=== PATIENT | female | born 1940 | race African-American/Black ===

== ENCOUNTER 2016-07-27 13:42 | Inpatient (IN) | payer MEDICARE, BC ==
[~2016-07-27] VITALS: Ht 165.1 cm; Wt 66.2 kg
[2016-07-27] MEDS ORDERED: IPRATROPIUM/ALBUTEROL 0.5-3(2.5)MG/3ML NEB HHN PRN (15:00)
[2016-07-27 16:00] VITALS: BP 149/88
[2016-07-27 16:29] VITALS: BP 144/83
[2016-07-27] MEDS ORDERED: ZOLP5TAB8 PO (16:40)
[2016-07-27] MEDS ORDERED: LOTE5DRO5 EACHEYE (16:41)
[2016-07-27] MEDS ORDERED: LOSA25TA12 PO (16:41)
[2016-07-27] MEDS ORDERED: SYSOS EACHEYE (16:44)
[2016-07-27] MEDS ORDERED: MECL-109 PO (16:45)
[2016-07-27] MEDS ORDERED: FLUT16SP15 BOTHNSTRLS (16:45)
[2016-07-27] MEDS ORDERED: FLUT1DIS INH (16:49)
[2016-07-27] MEDS ORDERED: POTA10TA69 PO (16:49)
[2016-07-27] MEDS ORDERED: ALBU2SYR PO (16:49)
[2016-07-27] MEDS ORDERED: ESTR1PAT TD (16:49)
[2016-07-27] MEDS ORDERED: PLAVIX PO (16:49)
[2016-07-27] MEDS ORDERED: AMLO2.5T45 PO (16:49)
[2016-07-27] MEDS ORDERED: OXYB5TAB11 PO (16:49)
[2016-07-27] MEDS ORDERED: PRAV40TA58 PO (16:49)
[2016-07-27] MEDS ORDERED: FAMO40TA35 PO (16:49)
[2016-07-27] MEDS ORDERED: MEDICATION NOT ON FORMULARY EA (Fluticasone/Salmeterol (Advair Diskus) 1 PUFF) INH SCH (17:00)
[2016-07-27] MEDS ORDERED: ALBUTEROL 2MG/5ML ORAL SYR PO SCH (17:00)
[2016-07-27] MEDS ORDERED: MECLIZINE 25MG TABLET PO PRN (17:07)
[2016-07-27] MEDS: METHYLPREDNISOLONE SOD SUCC 40 MG/ML VIAL IV SCH (18:13)
[2016-07-27 20:00] VITALS: BP 166/95
[2016-07-27] MEDS ORDERED: ZOLPIDEM TARTRATE 5MG TABLET PO PRN (20:00)
[2016-07-27 20:27] LABS: BASOPHILS % 0.3 % (0.0-2.0); EOSINOPHILS % 4.9 % (0.0-5.0); HEMATOCRIT. 45.8 % (36.0-48.0); HEMOGLOBIN. 15.5 g/dL (12.0-16.0); LYMPHOCYTES % 19.3 % (20.0-50.0); MEAN CORPUSCULAR HEMOGLOBIN 32.9 pg (28.0-32.0); MEAN PLATELET VOLUME 9.7 fl (7.4-10.4); NEUTROPHILS % 72.5 % (40.0-76.0); PLATELET 180 x1000/uL (130-400); RED BLOOD CELL COUNT 4.72 mill/uL (4.2-5.4); RED CELL DISTRIBUTION WIDTH 13.9 % (11.6-14.6)
[2016-07-27] MEDS: ATORVASTATIN CALCIUM 10MG TABLET PO SCH (20:31)
[2016-07-27] MEDS: AMLODIPINE 2.5MG TABLET PO SCH (20:32)
[2016-07-27] MEDS: IPRATROPIUM/ALBUTEROL 0.5-3(2.5)MG/3ML NEB HHN SCH (20:57)
[2016-07-27] MEDS: BUDESONIDE 0.5MG/2ML NEB HHN SCH (20:57)
[2016-07-27 21:01] LABS: CARBON DIOXIDE 32 mEq/L (21-32); CHLORIDE 103 mEq/L (98-107)
[2016-07-28] VITALS: BP 135/78
[2016-07-28] MEDS: ENOXAPARIN 40MG/0.4ML SYR SUBCUT SCH ×2 (00:04→20:25)
[2016-07-28] MEDS: METHYLPREDNISOLONE SOD SUCC 40 MG/ML VIAL IV SCH ×2 (00:04→09:23)
[2016-07-28] MEDS: FAMOTIDINE 20MG TABLET PO SCH ×2 (00:44→09:25)
[2016-07-28] MEDS: IPRATROPIUM/ALBUTEROL 0.5-3(2.5)MG/3ML NEB HHN SCH ×4 (01:14→21:08)
[2016-07-28 04:00] VITALS: BP 144/83
[2016-07-28] MEDS: BUDESONIDE 0.5MG/2ML NEB HHN SCH ×2 (07:20→21:08)
[2016-07-28 08:00] VITALS: BP 126/72
[2016-07-28] MEDS ORDERED: MEDICATION NOT ON FORMULARY EA (Pravastatin Sodium 1 TAB) PO SCH (09:00)
[2016-07-28] MEDS ORDERED: MEDICATION NOT ON FORMULARY EA ([Plavix] 75 MG) PO SCH (09:00)
[2016-07-28] MEDS ORDERED: MEDICATION NOT ON FORMULARY EA (Potassium Chloride (Klor-Con 10) 10 MEQ) PO SCH (09:00)
[2016-07-28] MEDS ORDERED: FLUTICASONE PROPIONATE 50MCG/SPRAY BOTTLE BOTHNSTRLS SCH (09:00)
[2016-07-28] MEDS ORDERED: FAMOTIDINE 20MG TABLET PO SCH (09:00)
[2016-07-28] MEDS ORDERED: MEDICATION NOT ON FORMULARY EA (Famotidine (Pepcid) 40 MG) PO SCH (09:00)
[2016-07-28] MEDS: CLOPIDOGREL 75MG TABLET PO SCH (09:23)
[2016-07-28] MEDS: POTASSIUM CHLORIDE 10MEQ TABLET SR PO SCH (09:23)
[2016-07-28] MEDS: OXYBUTYNIN CHLORIDE 5MG TABLET PO SCH (09:23)
[2016-07-28] MEDS: POLYVINYL ALCOHOL OPHTH DROPS 15ML OP SCH (09:23)
[2016-07-28] MEDS: AMLODIPINE 2.5MG TABLET PO SCH ×2 (09:24→20:25)
[2016-07-28] MEDS: LOSARTAN POTASSIUM 25 MG TABLET PO SCH (09:24)
[2016-07-28 12:00] VITALS: BP 120/63
[2016-07-28 12:25] LABS: HEMATOCRIT 42.2 % (36.0-48.0); HEMOGLOBIN 14.2 g/dL (12.0-16.0); MEAN CORPUSCULAR HEMOGLOBIN 32.4 pg (28.0-32.0); MEAN CORPUSCULAR VOLUME 96.4 fL (81.0-99.0); PLATELET 191 x1000/uL (130-400); RED BLOOD CELL COUNT 4.38 mill/uL (4.2-5.4)
[2016-07-28] MEDS ORDERED: METHYLPREDNISOLONE SOD SUCC 40 MG/ML VIAL IV ONE (12:30)
[2016-07-28 12:42] LABS: CARBON DIOXIDE 28 mEq/L (21-32); CHLORIDE 104 mEq/L (98-107)
[2016-07-28] MEDS: GUAIFENESIN-DM 200MG-20MG/10ML UDC PO PRN ×2 (13:20→20:25)
[2016-07-28 16:00] VITALS: BP 126/72
[2016-07-28] MEDS ORDERED: PREDNISONE 20MG TABLET PO SCH (17:00)
[2016-07-28 20:00] VITALS: BP 137/70
[2016-07-28] MEDS: LORATADINE 10MG TABLET PO SCH (20:25)
[2016-07-28] MEDS: ATORVASTATIN CALCIUM 10MG TABLET PO SCH (20:25)
[2016-07-28] MEDS: FLUTICASONE PROPIONATE 50MCG/SPRAY BOTTLE BOTHNSTRLS SCH (20:25)
[2016-07-29] VITALS: BP 119/63
[2016-07-29] MEDS: IPRATROPIUM/ALBUTEROL 0.5-3(2.5)MG/3ML NEB HHN SCH ×4 (01:07→20:47)
[2016-07-29 04:00] VITALS: BP 124/73
[2016-07-29 06:20] LABS: BASOPHILS % 0.1 % (0.0-2.0); HEMATOCRIT. 40.7 % (36.0-48.0); HEMOGLOBIN. 13.6 g/dL (12.0-16.0); LYMPHOCYTES % 11.7 % (20.0-50.0); MEAN CORPUSCULAR HEMOGLOBIN 32.3 pg (28.0-32.0); MEAN CORPUSCULAR VOLUME 96.3 fL (81.0-99.0); MEAN PLATELET VOLUME 9.6 fl (7.4-10.4); MONOCYTES % 6.1 % (2.0-8.0); NEUTROPHILS % 82.1 % (40.0-76.0); PLATELET 185 x1000/uL (130-400); RED BLOOD CELL COUNT 4.22 mill/uL (4.2-5.4); RED CELL DISTRIBUTION WIDTH 14.2 % (11.6-14.6)
[2016-07-29] MEDS: FAMOTIDINE 20MG TABLET PO SCH (06:33)
[2016-07-29] MEDS: GUAIFENESIN-DM 200MG-20MG/10ML UDC PO PRN (06:35)
[2016-07-29 07:17] LABS: CARBON DIOXIDE 29 mEq/L (21-32); CHLORIDE 105 mEq/L (98-107)
[2016-07-29] MEDS: BUDESONIDE 0.5MG/2ML NEB HHN SCH ×2 (07:42→20:47)
[2016-07-29] MEDS: CLOPIDOGREL 75MG TABLET PO SCH (08:22)
[2016-07-29] MEDS: DOCUSATE SODIUM 100MG CAPSULE PO SCH (08:22)
[2016-07-29] MEDS: AMLODIPINE 2.5MG TABLET PO SCH ×2 (08:22→20:21)
[2016-07-29] MEDS: OXYBUTYNIN CHLORIDE 5MG TABLET PO SCH (08:22)
[2016-07-29] MEDS: POTASSIUM CHLORIDE 10MEQ TABLET SR PO SCH (08:22)
[2016-07-29] MEDS: LOSARTAN POTASSIUM 25 MG TABLET PO SCH (08:22)
[2016-07-29] MEDS: POLYVINYL ALCOHOL OPHTH DROPS 15ML OP SCH (08:23)
[2016-07-29] MEDS: FLUTICASONE PROPIONATE 50MCG/SPRAY BOTTLE BOTHNSTRLS SCH ×2 (08:23→20:05)
[2016-07-29 08:43] VITALS: BP 143/78
[2016-07-29 12:14] VITALS: BP 115/67
[2016-07-29 16:14] VITALS: BP 106/59
[2016-07-29 20:00] VITALS: BP 117/67
[2016-07-29] MEDS: PREDNISOLONE ACETATE 1% OPHTH DROPS 1ML EACHEYE SCH (20:04)
[2016-07-29] MEDS: ATORVASTATIN CALCIUM 10MG TABLET PO SCH (20:05)
[2016-07-29] MEDS: LORATADINE 10MG TABLET PO SCH (20:05)
[2016-07-29] MEDS: ENOXAPARIN 40MG/0.4ML SYR SUBCUT SCH (20:22)
[2016-07-30] VITALS: BP 125/84
[2016-07-30] MEDS: IPRATROPIUM/ALBUTEROL 0.5-3(2.5)MG/3ML NEB HHN SCH ×3 (02:00→15:32)
[2016-07-30 04:03] VITALS: BP 128/89
[2016-07-30] MEDS: BUDESONIDE 0.5MG/2ML NEB HHN SCH (07:40)
[2016-07-30] MEDS: PREDNISOLONE ACETATE 1% OPHTH DROPS 1ML EACHEYE SCH (08:31)
[2016-07-30] MEDS: FLUTICASONE PROPIONATE 50MCG/SPRAY BOTTLE BOTHNSTRLS SCH (08:31)
[2016-07-30] MEDS: POLYVINYL ALCOHOL OPHTH DROPS 15ML OP SCH ×2 (08:31→08:37)
[2016-07-30] MEDS: GUAIFENESIN-DM 200MG-20MG/10ML UDC PO PRN (08:32)
[2016-07-30] MEDS: CLOPIDOGREL 75MG TABLET PO SCH (08:33)
[2016-07-30] MEDS: LOSARTAN POTASSIUM 25 MG TABLET PO SCH (08:33)
[2016-07-30] MEDS: DOCUSATE SODIUM 100MG CAPSULE PO SCH ×2 (08:33→08:38)
[2016-07-30] MEDS: AMLODIPINE 2.5MG TABLET PO SCH (08:34)
[2016-07-30] MEDS: POTASSIUM CHLORIDE 10MEQ TABLET SR PO SCH (08:34)
[2016-07-30] MEDS: FAMOTIDINE 20MG TABLET PO SCH (08:34)
[2016-07-30] MEDS: OXYBUTYNIN CHLORIDE 5MG TABLET PO SCH (08:34)
[2016-07-30 12:00] VITALS: BP 123/72
[2016-07-30 16:00] VITALS: BP 99/65
[2016-07-30 16:11] LABS: T4 FREE 1.07 ng/dL (0.76-1.46)
[2016-07-30 16:24] VITALS: BP 126/68
[2016-07-30 16:28] LABS: VITAMIN B12 SERUM 1213 pg/mL (211-911)
[2016-07-30 16:31] LABS: FOLIC ACID (FOLATE) SERUM > 20.00 ng/mL (>5.38)
[2016-08-04] MEDS ORDERED: ATOR10TA69 PO (23:49)
[2016-08-04] MEDS ORDERED: DOCU-138 PO (23:49)
[2016-08-04] MEDS ORDERED: IPRA3AMP9 INH (23:49)
[2016-08-04] MEDS ORDERED: LOV40 SQ (23:49)
[2016-08-04] MEDS ORDERED: CLOP75TA2 PO (23:49)
[2016-08-04] MEDS ORDERED: DEXT15DR5 EACHEYE (23:49)
[2016-08-04] MEDS ORDERED: BUDE0.5A3 IH (23:49)
[2016-08-05] MEDS ORDERED: PREDNISOLONE (00:15)
== END 2016-07-30 17:30 | DRG 189 ==
LOC: 5WST 13:42
PROVIDERS: ADMIT Specialist; ATTEND Specialist
DX: J96.00 Acute respiratory failure, unspecified whether with hypoxia or hypercapnia (principal); J44.1 Chronic obstructive pulmonary disease with (acute) exacerbation; E11.9 Type 2 diabetes mellitus without complications; E78.5 Hyperlipidemia, unspecified; K21.9 Gastro-esophageal reflux disease without esophagitis; I10 Essential (primary) hypertension; D72.829 Elevated white blood cell count, unspecified; E78.00 Pure hypercholesterolemia, unspecified; F17.210 Nicotine dependence, cigarettes, uncomplicated; H54.7 Unspecified visual loss; H40.10X0 Unspecified open-angle glaucoma, stage unspecified; R20.0 Anesthesia of skin; R21 Rash and other nonspecific skin eruption; R26.9 Unspecified abnormalities of gait and mobility; K90.0 Celiac disease; M47.9 Spondylosis, unspecified; M48.02 Spinal stenosis, cervical region; T78.3XXA Angioneurotic edema, initial encounter; Z83.3 Family history of diabetes mellitus; Z80.9 Family history of malignant neoplasm, unspecified; Z98.49 Cataract extraction status, unspecified eye; Z86.73 Personal history of transient ischemic attack (TIA), and cerebral infarction without residual deficits; Z88.8 Allergy status to other drugs, medicaments and biological substances; Z79.899 Other long term (current) drug therapy
CPT/HCPCS: 36415; 70551; 71010; 72141; 80048; 80053; 80061; 82607; 82746; 82962; 83036; 83605; 83735; 83880; 84439; 84443; 84481; 84484; 85025; 85027; 93005; 93306; 94640; 94664; 97162; 97165; C1893; J1650; J2920; J7620; J7626

== ENCOUNTER 2016-11-23 11:09 | Inpatient (IN) | payer MEDICARE, BC ==
[~2016-11-23] VITALS: Ht 165.1 cm; Wt 72.1 kg
[~2016-11-23 11:09] MED LIST: ALBU2SYR PO; AMLO2.5T45 PO; ATOR10TA69 PO; BUDE0.5A3 IH; CLOP75TA16 PO; DEXT15DR5 EACHEYE; DOCU-138 PO; DUONEB3 ML INH; ESTR1PAT TD; FAMO40TA70 PO; FLUT16SP15 BOTHNSTRLS; FLUT1DIS INH; LOSA25TA12 PO; LOV40 SQ; LTMX5 EACHEYE; MECL-109 PO; OXYB5TAB11 PO; PLAVIX PO; POTA10TA11 PO; PRAV40TA58 PO; PREDNISOLONE; SYSOS EACHEYE; ZOLP5TAB8 PO
[2016-11-23] MEDS ORDERED: ONDANSETRON HCL 4MG/2ML VIAL IV STA (11:35)
[2016-11-23 12:05] LABS: BASOPHILS % 0.4 % (0.0-2.0); EOSINOPHILS % 6.5 % (0.0-5.0); HEMATOCRIT. 42.2 % (36.0-48.0); HEMOGLOBIN. 14.2 g/dL (12.0-16.0); LYMPHOCYTES % 18.9 % (20.0-50.0); MEAN CORPUSCULAR HEMOGLOBIN 31.7 pg (28.0-32.0); MEAN CORPUSCULAR VOLUME 94.3 fL (81.0-99.0); MEAN PLATELET VOLUME 9.4 fl (7.4-10.4); MONOCYTES % 5.6 % (2.0-8.0); NEUTROPHILS % 68.6 % (40.0-76.0); PLATELET 179 x1000/uL (130-400); RED BLOOD CELL COUNT 4.47 mill/uL (4.2-5.4); RED CELL DISTRIBUTION WIDTH 15.1 % (11.6-14.6)
[2016-11-23 12:10] LABS: CLARITY URINE CLEAR (CLEAR); COLOR URINE YELLOW (YELLOW); GLUCOSE URINE NEGATIVE (NEGATIVE); KETONES URINE NEGATIVE (NEGATIVE); LEUKOCYTE ESTERASE URINE NEGATIVE (NEGATIVE); NITRITE URINE NEGATIVE (NEGATIVE); OCCULT BLOOD URINE NEGATIVE (NEGATIVE); PROTEIN URINE NEGATIVE (NEGATIVE); SPECIFIC GRAVITY URINE 1.016 (1.005-1.030); UROBILINOGEN URINE 0.2 E.U./dL (0.2-1.0)
[2016-11-23 12:20] LABS: CARBON DIOXIDE 33 mEq/L (21-32); CHLORIDE 104 mEq/L (98-107)
[2016-11-23 12:23] LABS: INR 1.1; PROTHROMBIN TIME 11.2 sec (9.4-11.6)
[2016-11-23] MEDS ORDERED: IPRATROPIUM BROMIDE (0.02%) 0.5MG/2.5ML NEB HHN STA (14:25)
[2016-11-23] MEDS ORDERED: ALBUTEROL (0.083%) 2.5MG/3ML NEB HHN STA (14:25)
[2016-11-23] MEDS ORDERED: CLONIDINE 0.1MG TABLET PO PRN (15:00)
[2016-11-23] MEDS ORDERED: ZOLPIDEM TARTRATE 5MG TABLET PO SCH (15:00)
[2016-11-23] MEDS ORDERED: IPRATROPIUM/ALBUTEROL 0.5-3(2.5)MG/3ML NEB HHN PRN (15:00)
[2016-11-23 15:07] LABS: TROPONIN I < 0.02 ng/mL (0.00-0.04)
[2016-11-23 16:40] LABS: BG BASE EXCESS 5.2 mmol/L (-2.0-2.0); BG CARBOXYHEMOGLOBIN 3.1 % (0.5-1.5); BG DEOXYHEMOGLOBIN 12.8 % (0.0-5.0); BG FRACTION INSPIRED OXYGEN 26; BG HCO3 ACT 31.5 mmol/L (22.0-26.0); BG METHEMOGLOBIN 0.4 % (0.0-1.5); BG OXYGEN SATURATION 86.7 % (92.0-98.5); BG OXYHEMOGLOBIN 83.7 % (94.0-97.0); BG PCO2 52.3 mmHg (35.0-45.0); BG PH 7.397 (7.350-7.450); BG PO2 53.1 mmHg (75.0-100.0); BG SAMPLE SITE RIGHT BRACHIAL; BG TOTAL HEMOGLOBIN 15.2 g/dL (12.0-18.0); BG VENT MODE NASAL CANNULA
[2016-11-23] MEDS ORDERED: ALBUTEROL 2MG/5ML ORAL SYR PO SCH (17:00)
[2016-11-23] MEDS ORDERED: DIPHENHYDRAMINE 50MG/ML VIAL IV NR (18:32)
[2016-11-23 18:38] VITALS: BP 140/71
[2016-11-23 19:30] VITALS: BP 128/65
[2016-11-23] MEDS: IPRATROPIUM/ALBUTEROL 0.5-3(2.5)MG/3ML NEB HHN SCH (19:58)
[2016-11-23] MEDS: BUDESONIDE 0.5MG/2ML NEB HHN SCH (19:58)
[2016-11-23] MEDS ORDERED: PERMETHRIN 5% CREAM 60GM TOP NR (20:00)
[2016-11-23] MEDS: AMLODIPINE 2.5MG TABLET PO SCH (21:01)
[2016-11-23] MEDS: CLOPIDOGREL 75MG TABLET PO SCH (21:01)
[2016-11-23] MEDS: ATORVASTATIN CALCIUM 10MG TABLET PO SCH (21:01)
[2016-11-23] MEDS: ENOXAPARIN 40MG/0.4ML SYR SUBCUT SCH (21:04)
[2016-11-24 00:20] VITALS: BP 107/58
[2016-11-24] MEDS: IPRATROPIUM/ALBUTEROL 0.5-3(2.5)MG/3ML NEB HHN SCH ×4 (01:48→21:40)
[2016-11-24 04:00] VITALS: BP 125/63
[2016-11-24 08:00] VITALS: BP 136/67
[2016-11-24] MEDS: LOSARTAN POTASSIUM 25 MG TABLET PO SCH (08:20)
[2016-11-24] MEDS: AMLODIPINE 2.5MG TABLET PO SCH (08:21)
[2016-11-24] MEDS: OXYBUTYNIN CHLORIDE 5MG TABLET PO SCH (08:21)
[2016-11-24] MEDS: MECLIZINE 25MG TABLET PO PRN (08:21)
[2016-11-24] MEDS: DOCUSATE SODIUM 100MG CAPSULE PO SCH (08:22)
[2016-11-24] MEDS: BUDESONIDE 0.5MG/2ML NEB HHN SCH ×2 (09:00→21:40)
[2016-11-24] MEDS ORDERED: FUROSEMIDE 40MG/4ML VIAL IVP SCH (09:45)
[2016-11-24] MEDS: HYDROCODONE/ACETAMINOPHEN 5/325MG TABLET PO PRN ×3 (09:49→22:30)
[2016-11-24 12:00] VITALS: BP 96/51
[2016-11-24] MEDS ORDERED: ALBUTEROL 2MG TABLET PO SCH (13:00)
[2016-11-24 16:00] VITALS: BP 119/64
[2016-11-24] MEDS: FUROSEMIDE 20MG TABLET PO SCH (16:38)
[2016-11-24] MEDS ORDERED: DIPHENHYDRAMINE 25MG CAPSULE PO PRN (17:45)
[2016-11-24 20:00] VITALS: BP 144/73
[2016-11-24] MEDS: ENOXAPARIN 40MG/0.4ML SYR SUBCUT SCH (21:30)
[2016-11-24] MEDS: ATORVASTATIN CALCIUM 10MG TABLET PO SCH (21:30)
[2016-11-24] MEDS: AMLODIPINE 5MG TABLET PO SCH (21:30)
[2016-11-24] MEDS: CLOPIDOGREL 75MG TABLET PO SCH (21:30)
[2016-11-25] VITALS: BP 117/60
[2016-11-25] MEDS: IPRATROPIUM/ALBUTEROL 0.5-3(2.5)MG/3ML NEB HHN SCH ×4 (02:11→21:22)
[2016-11-25] MEDS: HYDROCODONE/ACETAMINOPHEN 5/325MG TABLET PO PRN ×2 (03:18→09:05)
[2016-11-25 04:00] VITALS: BP 118/50
[2016-11-25] MEDS: FUROSEMIDE 20MG TABLET PO SCH ×2 (05:36→17:32)
[2016-11-25 06:16] LABS: BASOPHILS % 0.5 % (0.0-2.0); EOSINOPHILS % 12.5 % (0.0-5.0); HEMOGLOBIN. 12.5 g/dL (12.0-16.0); LYMPHOCYTES % 33.3 % (20.0-50.0); MEAN CORPUSCULAR HEMOGLOBIN 32.1 pg (28.0-32.0); MEAN CORPUSCULAR VOLUME 94.6 fL (81.0-99.0); MEAN PLATELET VOLUME 9.5 fl (7.4-10.4); MONOCYTES % 7.7 % (2.0-8.0); PLATELET 169 x1000/uL (130-400); RED BLOOD CELL COUNT 3.91 mill/uL (4.2-5.4); RED CELL DISTRIBUTION WIDTH 14.7 % (11.6-14.6)
[2016-11-25 07:51] LABS: CARBON DIOXIDE 32 mEq/L (21-32); CHLORIDE 103 mEq/L (98-107)
[2016-11-25 08:00] VITALS: BP 151/76
[2016-11-25] MEDS: BUDESONIDE 0.5MG/2ML NEB HHN SCH ×3 (09:00→21:22)
[2016-11-25] MEDS: DOCUSATE SODIUM 100MG CAPSULE PO SCH (09:04)
[2016-11-25] MEDS: MECLIZINE 25MG TABLET PO PRN (09:04)
[2016-11-25] MEDS: LOSARTAN POTASSIUM 25 MG TABLET PO SCH (09:04)
[2016-11-25] MEDS: OXYBUTYNIN CHLORIDE 5MG TABLET PO SCH (09:04)
[2016-11-25] MEDS: AMLODIPINE 5MG TABLET PO SCH ×2 (09:05→20:46)
[2016-11-25] MEDS ORDERED: MORPHINE SULFATE 4 MG/ML CPJ (NOT FOR IM USE) IV PRN (10:15)
[2016-11-25] MEDS: AZITHROMYCIN 500 MG TABLET PO SCH (11:37)
[2016-11-25 12:00] VITALS: BP 120/78
[2016-11-25] MEDS: HYDROCODONE/APAP 7.5/325MG 1 TAB TABLET PO PRN (15:37)
[2016-11-25 16:00] VITALS: BP 114/49
[2016-11-25 20:00] VITALS: BP 130/60
[2016-11-25] MEDS: CLOPIDOGREL 75MG TABLET PO SCH (20:46)
[2016-11-25] MEDS: ATORVASTATIN CALCIUM 10MG TABLET PO SCH (20:46)
[2016-11-25] MEDS: ENOXAPARIN 40MG/0.4ML SYR SUBCUT SCH (20:47)
[2016-11-26] VITALS: BP 115/67
[2016-11-26] MEDS: IPRATROPIUM/ALBUTEROL 0.5-3(2.5)MG/3ML NEB HHN SCH ×4 (01:18→21:12)
[2016-11-26] MEDS: HYDROCODONE/APAP 7.5/325MG 1 TAB TABLET PO PRN ×3 (02:54→17:39)
[2016-11-26 04:00] VITALS: BP 136/59
[2016-11-26] MEDS: FUROSEMIDE 20MG TABLET PO SCH ×2 (05:10→17:28)
[2016-11-26 07:14] LABS: BASOPHILS % 0.5 % (0.0-2.0); EOSINOPHILS % 13.3 % (0.0-5.0); HEMATOCRIT. 38.9 % (36.0-48.0); HEMOGLOBIN. 13.2 g/dL (12.0-16.0); LYMPHOCYTES % 31.7 % (20.0-50.0); MEAN CORPUSCULAR HEMOGLOBIN 31.7 pg (28.0-32.0); MEAN CORPUSCULAR VOLUME 93.4 fL (81.0-99.0); MEAN PLATELET VOLUME 9.6 fl (7.4-10.4); MONOCYTES % 7.4 % (2.0-8.0); NEUTROPHILS % 47.1 % (40.0-76.0); PLATELET 175 x1000/uL (130-400); RED BLOOD CELL COUNT 4.16 mill/uL (4.2-5.4); RED CELL DISTRIBUTION WIDTH 14.9 % (11.6-14.6)
[2016-11-26 08:00] VITALS: BP 119/49
[2016-11-26 08:19] LABS: CARBON DIOXIDE 33 mEq/L (21-32); CHLORIDE 100 mEq/L (98-107)
[2016-11-26] MEDS: AZITHROMYCIN 500 MG TABLET PO SCH (08:54)
[2016-11-26] MEDS: OXYBUTYNIN CHLORIDE 5MG TABLET PO SCH (08:54)
[2016-11-26] MEDS: DOCUSATE SODIUM 100MG CAPSULE PO SCH (08:54)
[2016-11-26] MEDS: LOSARTAN POTASSIUM 25 MG TABLET PO SCH (08:55)
[2016-11-26] MEDS: AMLODIPINE 5MG TABLET PO SCH ×2 (08:55→21:47)
[2016-11-26] MEDS: BUDESONIDE 0.5MG/2ML NEB HHN SCH (09:29)
[2016-11-26] MEDS ORDERED: KETOROLAC 10MG TABLET PO SCH (11:00)
[2016-11-26 12:30] VITALS: BP 112/60
[2016-11-26] MEDS: KETOROLAC 10MG TABLET PO PRN (15:52)
[2016-11-26 16:00] VITALS: BP 110/54
[2016-11-26 20:00] VITALS: BP 130/61
[2016-11-26] MEDS: ATORVASTATIN CALCIUM 10MG TABLET PO SCH (21:47)
[2016-11-26] MEDS: CLOPIDOGREL 75MG TABLET PO SCH (21:47)
[2016-11-26] MEDS: ENOXAPARIN 40MG/0.4ML SYR SUBCUT SCH (21:49)
[2016-11-27] VITALS: BP 122/67
[2016-11-27] MEDS: IPRATROPIUM/ALBUTEROL 0.5-3(2.5)MG/3ML NEB HHN SCH ×3 (01:55→21:35)
[2016-11-27 04:00] VITALS: BP 141/74
[2016-11-27] MEDS: FUROSEMIDE 20MG TABLET PO SCH ×2 (06:16→17:37)
[2016-11-27] MEDS: KETOROLAC 10MG TABLET PO PRN ×2 (06:16→14:30)
[2016-11-27 06:51] LABS: BASOPHILS % 0.5 % (0.0-2.0); EOSINOPHILS % 14.6 % (0.0-5.0); HEMOGLOBIN. 13.8 g/dL (12.0-16.0); MEAN CORPUSCULAR HEMOGLOBIN 31.5 pg (28.0-32.0); MEAN CORPUSCULAR VOLUME 93.7 fL (81.0-99.0); MEAN PLATELET VOLUME 9.4 fl (7.4-10.4); MONOCYTES % 7.2 % (2.0-8.0); NEUTROPHILS % 46.7 % (40.0-76.0); PLATELET 201 x1000/uL (130-400); RED BLOOD CELL COUNT 4.38 mill/uL (4.2-5.4); RED CELL DISTRIBUTION WIDTH 14.8 % (11.6-14.6)
[2016-11-27 08:00] VITALS: BP 145/78
[2016-11-27] MEDS: DOCUSATE SODIUM 100MG CAPSULE PO SCH (08:56)
[2016-11-27] MEDS: OXYBUTYNIN CHLORIDE 5MG TABLET PO SCH (08:56)
[2016-11-27] MEDS: AZITHROMYCIN 500 MG TABLET PO SCH (08:56)
[2016-11-27] MEDS: AMLODIPINE 5MG TABLET PO SCH ×2 (08:57→21:00)
[2016-11-27] MEDS: LOSARTAN POTASSIUM 25 MG TABLET PO SCH ×2 (08:57→21:00)
[2016-11-27] MEDS: HYDROCODONE/APAP 7.5/325MG 1 TAB TABLET PO PRN ×2 (08:58→17:39)
[2016-11-27 09:10] LABS: CARBON DIOXIDE 32 mEq/L (21-32); CHLORIDE 99 mEq/L (98-107)
[2016-11-27] MEDS ORDERED: POTASSIUM CHLORIDE 20MEQ TABLET SR PO SCH (11:15)
[2016-11-27 12:00] VITALS: BP 100/52
[2016-11-27 16:00] VITALS: BP 125/59
[2016-11-27 20:00] VITALS: BP 105/60
[2016-11-27] MEDS: CLOPIDOGREL 75MG TABLET PO SCH (21:37)
[2016-11-27] MEDS: ATORVASTATIN CALCIUM 10MG TABLET PO SCH (21:37)
[2016-11-27] MEDS: ENOXAPARIN 40MG/0.4ML SYR SUBCUT SCH (21:40)
[2016-11-28] VITALS: BP 133/64
[2016-11-28] MEDS: HYDROCODONE/APAP 7.5/325MG 1 TAB TABLET PO PRN (01:32)
[2016-11-28] MEDS: IPRATROPIUM/ALBUTEROL 0.5-3(2.5)MG/3ML NEB HHN SCH ×3 (02:35→15:08)
[2016-11-28 04:00] VITALS: BP 152/74
[2016-11-28] MEDS: FUROSEMIDE 20MG TABLET PO SCH (06:08)
[2016-11-28 06:37] LABS: HEMATOCRIT. 36.5 % (36.0-48.0); HEMOGLOBIN. 12.3 g/dL (12.0-16.0); MEAN CORPUSCULAR HEMOGLOBIN 31.8 pg (28.0-32.0); MEAN CORPUSCULAR VOLUME 93.9 fL (81.0-99.0); MEAN PLATELET VOLUME 9.9 fl (7.4-10.4); PLATELET 169 x1000/uL (130-400); RED BLOOD CELL COUNT 3.89 mill/uL (4.2-5.4); RED CELL DISTRIBUTION WIDTH 15.3 % (11.6-14.6)
[2016-11-28 07:07] LABS: CARBON DIOXIDE 33 mEq/L (21-32); CHLORIDE 102 mEq/L (98-107)
[2016-11-28 08:00] VITALS: BP 137/80
[2016-11-28] MEDS: OXYBUTYNIN CHLORIDE 5MG TABLET PO SCH (08:56)
[2016-11-28] MEDS: LOSARTAN POTASSIUM 25 MG TABLET PO SCH (08:57)
[2016-11-28] MEDS: AMLODIPINE 5MG TABLET PO SCH (08:57)
[2016-11-28] MEDS: DOCUSATE SODIUM 100MG CAPSULE PO SCH (08:57)
[2016-11-28] MEDS: AZITHROMYCIN 500 MG TABLET PO SCH (09:13)
[2016-11-28 13:23] VITALS: BP 112/79
[2016-11-28 16:17] LABS: PLATELET ESTIMATE NORMAL
== END 2016-11-28 16:35 | disposition home or self-care (01) | DRG 189 ==
LOC: ER 11:09 → 7WST 15:00 → EDBEDREQ 15:02 → ENRESERV 16:49
PROVIDERS: ADMIT Specialist; ATTEND Specialist
DX: J96.01 Acute respiratory failure with hypoxia (principal); J44.0 Chronic obstructive pulmonary disease with (acute) lower respiratory infection; E11.9 Type 2 diabetes mellitus without complications; J44.1 Chronic obstructive pulmonary disease with (acute) exacerbation; E78.5 Hyperlipidemia, unspecified; E78.00 Pure hypercholesterolemia, unspecified; E87.6 Hypokalemia; F17.210 Nicotine dependence, cigarettes, uncomplicated; I25.10 Atherosclerotic heart disease of native coronary artery without angina pectoris; H40.10X0 Unspecified open-angle glaucoma, stage unspecified; K21.9 Gastro-esophageal reflux disease without esophagitis; L29.9 Pruritus, unspecified; J20.9 Acute bronchitis, unspecified; S46.811A Strain of other muscles, fascia and tendons at shoulder and upper arm level, right arm, initial encounter; X58.XXXA Exposure to other specified factors, initial encounter; R21 Rash and other nonspecific skin eruption; Z88.2 Allergy status to sulfonamides; Z88.8 Allergy status to other drugs, medicaments and biological substances; Z80.9 Family history of malignant neoplasm, unspecified; Z86.73 Personal history of transient ischemic attack (TIA), and cerebral infarction without residual deficits
CPT/HCPCS: 36415; 36600; 71010; 73221; 78582; 80048; 80053; 81003; 82375; 82805; 83605; 83735; 83880; 84484; 85025; 85379; 85610; 93005; 93306; 94640; 97162; 97535; 99285; A4565; A9558; J1200; J1650; J1940; J2270; J2405; J7611; J7620; J7626; J8597; Q0163

== ENCOUNTER → 2017-04-18 | Outpatient (CLI) | payer MEDICARE, BC ==
[~2017-04-18] MED LIST changes: -LOSA25TA12 PO
== END | disposition home or self-care (01) ==
LOC: MAMMO 10:52
PROVIDERS: ATTEND Specialist
DX: Z12.31 Encounter for screening mammogram for malignant neoplasm of breast (principal)
CPT/HCPCS: 77067

== ENCOUNTER 2019-06-13 12:46 | Inpatient (IN) | payer MEDICARE, BC ==
[~2019-06-13] VITALS: Ht 160 cm; Wt 76.2 kg
[~2019-06-13 12:46] MED LIST changes: -ALBU2SYR PO; +ALBU2SYR3 PO; +BRIM10DR2 OP; -CLOP75TA16 PO; +CLOP75TA4 PO; +LOSA25TA3 MT; -MECL-109 PO; +MECL-159 PO; -OXYB5TAB11 PO; +OXYB5TAB16 PO; +ZOLP5TAB2 PO
[2019-06-13] MEDS ORDERED: SODIUM CHLORIDE 0.9% 1,000 ML IV ONE (13:08)
[2019-06-13] MEDS ORDERED: ALBUTEROL (0.083%) 2.5MG/3ML NEB HHN STA (13:09)
[2019-06-13] MEDS ORDERED: IPRATROPIUM BROMIDE (0.02%) 0.5MG/2.5ML NEB HHN STA (13:09)
[2019-06-13] MEDS ORDERED: MAGNESIUM 2 G PREMIX 50 ML IV ONE (13:15)
[2019-06-13] MEDS ORDERED: ALBUTEROL 6.7GM HFA INHALER ORI ONE (14:15)
[2019-06-13 14:20] LABS: BASOPHILS % 0.4 % (0.0-2.0); EOSINOPHILS % 3.1 % (0.0-5.0); HEMATOCRIT. 47.4 % (36.0-48.0); HEMOGLOBIN. 15.8 g/dL (12.0-16.0); LYMPHOCYTES % 21.4 % (20.0-50.0); MEAN CORPUSCULAR HEMOGLOBIN 32.7 pg (28.0-32.0); MEAN CORPUSCULAR VOLUME 98.4 fL (81.0-99.0); MONOCYTES % 6.2 % (2.0-8.0); NEUTROPHILS % 68.9 % (40.0-76.0); RED BLOOD CELL COUNT 4.81 mill/uL (4.2-5.4); RED CELL DISTRIBUTION WIDTH 15.2 % (11.6-14.6)
[2019-06-13 14:27] LABS: PROTHROMBIN TIME 10.9 sec (9.6-11.0)
[2019-06-13 15:06] LABS: CLARITY URINE CLOUDY (CLEAR); COLOR URINE DARK YELLOW (YELLOW); KETONES URINE TRACE (NEGATIVE); LEUKOCYTE ESTERASE URINE TRACE (NEGATIVE); NITRITE URINE NEGATIVE (NEGATIVE); OCCULT BLOOD URINE NEGATIVE (NEGATIVE); PROTEIN URINE 1+ (NEGATIVE); SPECIFIC GRAVITY URINE 1.024 (1.005-1.030)
[2019-06-13 15:31] LABS: MEAN PLATELET VOLUME 10.3 fl (7.4-10.4); PLATELET 237 x1000/uL (130-400)
[2019-06-13] MEDS ORDERED: CEFTRIAXONE 1 G PREMIX 50 ML IV ONE (16:45)
[2019-06-13 17:08] LABS: CHLORIDE 111 mEq/L (98-107)
[2019-06-13 18:00] VITALS: BP 147/47
[2019-06-13] MEDS ORDERED: CLONIDINE 0.1MG TABLET PO PRN (19:45)
[2019-06-13] MEDS ORDERED: ACETAMINOPHEN 325MG TABLET PO PRN (19:45)
[2019-06-13 20:00] VITALS: BP 139/67
[2019-06-13 20:07] VITALS: BP 139/67
[2019-06-13] MEDS: BENZONATATE 100MG CAPSULE PO PRN (20:30)
[2019-06-13] MEDS ORDERED: IPRATROPIUM/ALBUTEROL 0.5-3(2.5)MG/3ML NEB HHN PRN (21:45)
[2019-06-13] MEDS: FAMOTIDINE 20MG TABLET PO SCH (22:24)
[2019-06-14] VITALS (7 sets, daily range): BP systolic 125–150; BP diastolic 58–89
[2019-06-14] MEDS ORDERED: POLYVINYL ALCOHOL OPHTH DROPS 15ML EACHEYE PRN (01:00)
[2019-06-14 07:21] LABS: BASOPHILS % 0.4 % (0.0-2.0); EOSINOPHILS % 5.2 % (0.0-5.0); HEMATOCRIT. 39.4 % (36.0-48.0); HEMOGLOBIN. 13.5 g/dL (12.0-16.0); LYMPHOCYTES % 18.3 % (20.0-50.0); MEAN CORPUSCULAR VOLUME 96.1 fL (81.0-99.0); MEAN PLATELET VOLUME 10.3 fl (7.4-10.4); MONOCYTES % 8.7 % (2.0-8.0); NEUTROPHILS % 67.4 % (40.0-76.0); PLATELET 159 x1000/uL (130-400); RED CELL DISTRIBUTION WIDTH 14.7 % (11.6-14.6)
[2019-06-14 08:22] LABS: CHLORIDE 109 mEq/L (98-107)
[2019-06-14] MEDS: AMLODIPINE 5MG TABLET PO SCH (09:30)
[2019-06-14] MEDS: BENZONATATE 100MG CAPSULE PO PRN (14:33)
[2019-06-14] MEDS ORDERED: CEFTRIAXONE 1 G PREMIX 50 ML IV SCH (17:30)
[2019-06-14] MEDS: GUAIFENESIN-DM 200MG-20MG/10ML UDC PO PRN (21:21)
[2019-06-14] MEDS: FAMOTIDINE 20MG TABLET PO SCH (21:21)
[2019-06-15] VITALS: BP 130/54
[2019-06-15 04:00] VITALS: BP 108/69
[2019-06-15 08:15] VITALS: BP 136/69
[2019-06-15] MEDS: AMLODIPINE 5MG TABLET PO SCH (08:55)
[2019-06-15 11:21] VITALS: BP 130/68
[2019-06-15] MEDS ORDERED: MECL-159 PO (11:57)
[2019-06-15 12:00] VITALS: BP_SYST 121; BP_SYST 122; BP_SYST 131; BP_DIAS 60; BP_DIAS 65; BP_DIAS 70
[2019-06-15] MEDS: GUAIFENESIN-DM 200MG-20MG/10ML UDC PO PRN (16:29)
== END 2019-06-15 16:55 | disposition home or self-care (01) | DRG 191 ==
LOC: ER 12:46 → 6WST 16:48 → EDBEDREQ 16:51 → ENRESERV 17:05
PROVIDERS: ADMIT Internal Medicine; ATTEND Internal Medicine
DX: J44.1 Chronic obstructive pulmonary disease with (acute) exacerbation (principal); N39.0 Urinary tract infection, site not specified; E87.2 Acidosis; I10 Essential (primary) hypertension; R00.0 Tachycardia, unspecified; E78.5 Hyperlipidemia, unspecified; H81.10 Benign paroxysmal vertigo, unspecified ear; I27.81 Cor pulmonale (chronic); I27.21 Secondary pulmonary arterial hypertension; I95.1 Orthostatic hypotension; Z88.2 Allergy status to sulfonamides; Z79.01 Long term (current) use of anticoagulants; Z87.891 Personal history of nicotine dependence; Z79.899 Other long term (current) drug therapy; Z86.73 Personal history of transient ischemic attack (TIA), and cerebral infarction without residual deficits; Z82.49 Family history of ischemic heart disease and other diseases of the circulatory system; Z79.02 Long term (current) use of antithrombotics/antiplatelets; Z79.51 Long term (current) use of inhaled steroids; Y93.K1 Activity, walking an animal; R35.0 Frequency of micturition; Z88.8 Allergy status to other drugs, medicaments and biological substances
CPT/HCPCS: 36415; 71045; 80048; 80053; 81003; 83605; 83880; 84484; 85025; 93005; 93306; 93880; 93970; 94640; 97162; 99291; J0696; J3475; J7030

== ENCOUNTER 2021-05-19 17:50 | Inpatient (IN) | payer MEDICARE, BC ==
[~2021-05-19] VITALS: Ht 165.1 cm; Wt 56.7 kg
[2021-05-19 17:50] VITALS: BP 108/51
[~2021-05-19 17:50] MED LIST changes: +CLOP-31 PO; -CLOP75TA4 PO; +CRES10 MT; +DONE10TA36 MT; +FLUO20CA39 MT; +METO-539 MT; +OXYB5TAB17 PO; +TELM1TAB MT
[2021-05-19 19:30] VITALS: BP 108/51
[2021-05-19 20:00] VITALS: BP 119/59
[2021-05-19] MEDS ORDERED: MAGNESIUM/ALUMINUM HYDROXIDE/SIMETHICONE 30ML UDC PO PRN (20:15)
[2021-05-19] MEDS ORDERED: IPRATROPIUM/ALBUTEROL 0.5-3(2.5)MG/3ML NEB HHN PRN (20:15)
[2021-05-19] MEDS ORDERED: ONDANSETRON HCL 4MG/2ML INJ IV PRN (20:15)
[2021-05-19] MEDS ORDERED: ACETAMINOPHEN 325MG TABLET PO PRN (20:15)
[2021-05-19] MEDS ORDERED: CLONIDINE 0.1MG TABLET PO PRN (20:15)
[2021-05-19] MEDS ORDERED: DOCUSATE SODIUM 100MG CAPSULE PO PRN (20:30)
[2021-05-19] MEDS ORDERED: LACTULOSE 20G/30ML UDC PO PRN (20:30)
[2021-05-19] MEDS: ATORVASTATIN CALCIUM 10MG TABLET PO SCH (21:47)
[2021-05-19] MEDS: CARVEDILOL 3.125 MG TABLET PO SCH (21:47)
[2021-05-19] MEDS: ENOXAPARIN 30MG/0.3ML SYR SUBCUT SCH (21:48)
[2021-05-19] MEDS: SENNOSIDES/DOCUSATE SOD 8.6/50MG TABLET PO SCH (21:48)
[2021-05-20 06:09] LABS: BASOPHILS % 0.4 % (0.0-2.0); EOSINOPHILS % 4.5 % (0.0-5.0); HEMATOCRIT. 37.3 % (36.0-48.0); HEMOGLOBIN. 12.5 g/dL (12.0-16.0); LYMPHOCYTES % 13.6 % (20.0-50.0); MEAN CORPUSCULAR HEMOGLOBIN 31.3 pg (28.0-32.0); MEAN PLATELET VOLUME 9.4 fl (7.4-10.4); MONOCYTES % 7.5 % (2.0-8.0); PLATELET 218 x1000/uL (130-400); RED BLOOD CELL COUNT 4.01 mill/uL (4.2-5.4); RED CELL DISTRIBUTION WIDTH 14.7 % (11.6-14.6)
[2021-05-20 06:32] LABS: CHLORIDE 107 mEq/L (98-107)
[2021-05-20 08:00] VITALS: BP 137/63
[2021-05-20] MEDS ORDERED: DOCUSATE SODIUM 100MG CAPSULE PO SCH (09:00)
[2021-05-20] MEDS: CARVEDILOL 3.125 MG TABLET PO SCH ×2 (09:14→20:26)
[2021-05-20] MEDS: LOSARTAN POTASSIUM 25 MG TABLET PO SCH (09:14)
[2021-05-20] MEDS: CLOPIDOGREL 75MG TABLET PO SCH (09:14)
[2021-05-20] MEDS: AMLODIPINE 5MG TABLET PO SCH (09:15)
[2021-05-20 20:00] VITALS: BP 141/59
[2021-05-20] MEDS: ATORVASTATIN CALCIUM 10MG TABLET PO SCH (20:26)
[2021-05-20] MEDS: ENOXAPARIN 30MG/0.3ML SYR SUBCUT SCH (20:27)
[2021-05-20] MEDS: SENNOSIDES/DOCUSATE SOD 8.6/50MG TABLET PO SCH (20:28)
[2021-05-21 08:00] VITALS: BP 145/60
[2021-05-21] MEDS: AMLODIPINE 5MG TABLET PO SCH (08:13)
[2021-05-21] MEDS: CLOPIDOGREL 75MG TABLET PO SCH (08:13)
[2021-05-21] MEDS: CARVEDILOL 3.125 MG TABLET PO SCH ×2 (08:14→20:13)
[2021-05-21] MEDS: LOSARTAN POTASSIUM 25 MG TABLET PO SCH (08:14)
[2021-05-21 20:00] VITALS: BP 126/48
[2021-05-21] MEDS: ATORVASTATIN CALCIUM 10MG TABLET PO SCH (20:12)
[2021-05-21] MEDS: SENNOSIDES/DOCUSATE SOD 8.6/50MG TABLET PO SCH (20:12)
[2021-05-21] MEDS: ENOXAPARIN 30MG/0.3ML SYR SUBCUT SCH (20:13)
[2021-05-21 20:37] LABS: BASOPHILS % 0.8 % (0.0-2.0); EOSINOPHILS % 7.4 % (0.0-5.0); HEMATOCRIT. 38.5 % (36.0-48.0); HEMOGLOBIN. 12.7 g/dL (12.0-16.0); LYMPHOCYTES % 16.3 % (20.0-50.0); MEAN CORPUSCULAR HEMOGLOBIN 31.3 pg (28.0-32.0); MEAN CORPUSCULAR VOLUME 94.8 fL (81.0-99.0); MEAN PLATELET VOLUME 10.5 fl (7.4-10.4); MONOCYTES % 6.9 % (2.0-8.0); NEUTROPHILS % 68.6 % (40.0-76.0); PLATELET 201 x1000/uL (130-400); RED BLOOD CELL COUNT 4.06 mill/uL (4.2-5.4); RED CELL DISTRIBUTION WIDTH 14.7 % (11.6-14.6)
[2021-05-21 21:00] LABS: CHLORIDE 104 mEq/L (98-107)
[2021-05-21] MEDS ORDERED: SODIUM POLYSTYRENE SULFONATE 15 G/60 ML BOT PO NR (22:30)
[2021-05-22] MEDS: ACETAMINOPHEN 325MG TABLET PO PRN ×2 (06:09→23:05)
[2021-05-22 07:44] LABS: CHLORIDE 104 mEq/L (98-107)
[2021-05-22 07:59] VITALS: BP 143/58
[2021-05-22] MEDS: AMLODIPINE 5MG TABLET PO SCH (08:27)
[2021-05-22] MEDS: CLOPIDOGREL 75MG TABLET PO SCH (08:27)
[2021-05-22] MEDS: LOSARTAN POTASSIUM 25 MG TABLET PO SCH (08:28)
[2021-05-22] MEDS: CARVEDILOL 3.125 MG TABLET PO SCH (08:28)
[2021-05-22 20:00] VITALS: BP 133/56
[2021-05-22] MEDS: ATORVASTATIN CALCIUM 10MG TABLET PO SCH (20:22)
[2021-05-22] MEDS: SENNOSIDES/DOCUSATE SOD 8.6/50MG TABLET PO SCH (20:23)
[2021-05-22] MEDS: CARVEDILOL 6.25 MG TABLET PO SCH (20:23)
[2021-05-22] MEDS: ENOXAPARIN 30MG/0.3ML SYR SUBCUT SCH (20:23)
[2021-05-23 08:00] VITALS: BP 136/58
[2021-05-23] MEDS: CARVEDILOL 6.25 MG TABLET PO SCH ×2 (09:30→21:28)
[2021-05-23] MEDS: CLOPIDOGREL 75MG TABLET PO SCH (09:30)
[2021-05-23] MEDS: AMLODIPINE 5MG TABLET PO SCH (09:30)
[2021-05-23] MEDS: LOSARTAN POTASSIUM 25 MG TABLET PO SCH (09:30)
[2021-05-23 09:31] LABS: CLARITY URINE CLEAR (CLEAR); COLOR URINE YELLOW (YELLOW); KETONES URINE NEGATIVE (NEGATIVE); LEUKOCYTE ESTERASE URINE NEGATIVE (NEGATIVE); NITRITE URINE NEGATIVE (NEGATIVE); OCCULT BLOOD URINE NEGATIVE (NEGATIVE); PH URINE 8.5 (4.5-8.0); PROTEIN URINE NEGATIVE (NEGATIVE)
[2021-05-23] MEDS: GUAIFENESIN 200MG/10ML SUGAR FREE UDC PO PRN ×2 (10:49→18:00)
[2021-05-23 20:00] VITALS: BP_SYST 150; BP_SYST 170; BP_DIAS 70
[2021-05-23] MEDS: ACETAMINOPHEN 325MG TABLET PO PRN (21:26)
[2021-05-23] MEDS: ATORVASTATIN CALCIUM 10MG TABLET PO SCH (21:26)
[2021-05-23] MEDS: SENNOSIDES/DOCUSATE SOD 8.6/50MG TABLET PO SCH (21:27)
[2021-05-23] MEDS: ENOXAPARIN 30MG/0.3ML SYR SUBCUT SCH (21:28)
[2021-05-24] VITALS: BP 133/70
[2021-05-24 06:31] LABS: BASOPHILS % 1.1 % (0.0-2.0); EOSINOPHILS % 8.5 % (0.0-5.0); HEMATOCRIT. 36.2 % (36.0-48.0); HEMOGLOBIN. 12.2 g/dL (12.0-16.0); LYMPHOCYTES % 33.8 % (20.0-50.0); MEAN CORPUSCULAR HEMOGLOBIN 31.6 pg (28.0-32.0); MEAN CORPUSCULAR VOLUME 93.5 fL (81.0-99.0); MEAN PLATELET VOLUME 9.9 fl (7.4-10.4); MONOCYTES % 7.2 % (2.0-8.0); NEUTROPHILS % 49.4 % (40.0-76.0); PLATELET 233 x1000/uL (130-400); RED BLOOD CELL COUNT 3.88 mill/uL (4.2-5.4); RED CELL DISTRIBUTION WIDTH 14.3 % (11.6-14.6)
[2021-05-24 08:00] VITALS: BP 141/63
[2021-05-24 08:18] LABS: CHLORIDE 105 mEq/L (98-107)
[2021-05-24] MEDS: CLOPIDOGREL 75MG TABLET PO SCH (09:56)
[2021-05-24] MEDS: CARVEDILOL 6.25 MG TABLET PO SCH ×2 (09:56→21:42)
[2021-05-24] MEDS: AMLODIPINE 5MG TABLET PO SCH (09:56)
[2021-05-24] MEDS: LOSARTAN POTASSIUM 25 MG TABLET PO SCH (09:56)
[2021-05-24 20:05] VITALS: BP 126/59
[2021-05-24] MEDS: ENOXAPARIN 30MG/0.3ML SYR SUBCUT SCH (21:41)
[2021-05-24] MEDS: ATORVASTATIN CALCIUM 10MG TABLET PO SCH (21:41)
[2021-05-24] MEDS: SENNOSIDES/DOCUSATE SOD 8.6/50MG TABLET PO SCH (21:43)
[2021-05-24] MEDS: GUAIFENESIN 200MG/10ML SUGAR FREE UDC PO PRN (23:48)
[2021-05-25] MEDS: ACETAMINOPHEN 325MG TABLET PO PRN ×2 (02:11→21:30)
[2021-05-25 08:00] VITALS: BP 134/60
[2021-05-25] MEDS: CLOPIDOGREL 75MG TABLET PO SCH (08:47)
[2021-05-25] MEDS: CARVEDILOL 6.25 MG TABLET PO SCH ×2 (08:48→21:30)
[2021-05-25] MEDS: LOSARTAN POTASSIUM 25 MG TABLET PO SCH (08:48)
[2021-05-25] MEDS: AMLODIPINE 5MG TABLET PO SCH (08:49)
[2021-05-25 20:13] VITALS: BP 136/62
[2021-05-25] MEDS: SENNOSIDES/DOCUSATE SOD 8.6/50MG TABLET PO SCH (21:31)
[2021-05-25] MEDS: ATORVASTATIN CALCIUM 10MG TABLET PO SCH (21:31)
[2021-05-25] MEDS: ENOXAPARIN 30MG/0.3ML SYR SUBCUT SCH (21:32)
[2021-05-26 08:00] VITALS: BP 137/55
[2021-05-26] MEDS: AMLODIPINE 5MG TABLET PO SCH (09:00)
[2021-05-26] MEDS: CARVEDILOL 6.25 MG TABLET PO SCH ×2 (09:00→22:08)
[2021-05-26] MEDS: LOSARTAN POTASSIUM 25 MG TABLET PO SCH (09:00)
[2021-05-26] MEDS: CLOPIDOGREL 75MG TABLET PO SCH (09:50)
[2021-05-26] MEDS: ACETAMINOPHEN 325MG TABLET PO PRN ×2 (09:57→22:06)
[2021-05-26 20:00] VITALS: BP 143/58
[2021-05-26] MEDS: SENNOSIDES/DOCUSATE SOD 8.6/50MG TABLET PO SCH (21:00)
[2021-05-26] MEDS: ATORVASTATIN CALCIUM 10MG TABLET PO SCH (22:07)
[2021-05-26] MEDS: ENOXAPARIN 30MG/0.3ML SYR SUBCUT SCH (22:09)
[2021-05-27] MEDS: ACETAMINOPHEN 325MG TABLET PO PRN ×2 (06:07→22:29)
[2021-05-27 06:32] LABS: BASOPHILS % 0.9 % (0.0-2.0); EOSINOPHILS % 8.5 % (0.0-5.0); HEMATOCRIT. 33.8 % (36.0-48.0); HEMOGLOBIN. 11.1 g/dL (12.0-16.0); LYMPHOCYTES % 31.5 % (20.0-50.0); MEAN CORPUSCULAR HEMOGLOBIN 31.3 pg (28.0-32.0); MEAN PLATELET VOLUME 9.8 fl (7.4-10.4); NEUTROPHILS % 50.1 % (40.0-76.0); PLATELET 230 x1000/uL (130-400); RED BLOOD CELL COUNT 3.56 mill/uL (4.2-5.4); RED CELL DISTRIBUTION WIDTH 14.6 % (11.6-14.6)
[2021-05-27 06:52] LABS: CHLORIDE 106 mEq/L (98-107)
[2021-05-27 07:55] VITALS: BP 155/74
[2021-05-27] MEDS: LOSARTAN POTASSIUM 25 MG TABLET PO SCH (08:45)
[2021-05-27] MEDS: CLOPIDOGREL 75MG TABLET PO SCH (08:45)
[2021-05-27] MEDS: CARVEDILOL 6.25 MG TABLET PO SCH ×2 (08:45→20:01)
[2021-05-27] MEDS: AMLODIPINE 5MG TABLET PO SCH (08:45)
[2021-05-27 20:00] VITALS: BP 127/63
[2021-05-27] MEDS: SENNOSIDES/DOCUSATE SOD 8.6/50MG TABLET PO SCH (20:00)
[2021-05-27] MEDS: ATORVASTATIN CALCIUM 10MG TABLET PO SCH (20:00)
[2021-05-27] MEDS: ENOXAPARIN 30MG/0.3ML SYR SUBCUT SCH (20:02)
[2021-05-28 07:05] LABS: BASOPHILS % 0.8 % (0.0-2.0); EOSINOPHILS % 9.4 % (0.0-5.0); HEMATOCRIT. 36.3 % (36.0-48.0); HEMOGLOBIN. 11.9 g/dL (12.0-16.0); LYMPHOCYTES % 28.5 % (20.0-50.0); MEAN CORPUSCULAR HEMOGLOBIN 30.9 pg (28.0-32.0); MEAN PLATELET VOLUME 9.5 fl (7.4-10.4); MONOCYTES % 7.9 % (2.0-8.0); NEUTROPHILS % 53.4 % (40.0-76.0); PLATELET 228 x1000/uL (130-400); RED BLOOD CELL COUNT 3.86 mill/uL (4.2-5.4); RED CELL DISTRIBUTION WIDTH 14.6 % (11.6-14.6)
[2021-05-28 07:19] LABS: CHLORIDE 105 mEq/L (98-107)
[2021-05-28 08:00] VITALS: BP 124/62
[2021-05-28] MEDS: ACETAMINOPHEN 325MG TABLET PO PRN ×2 (09:42→20:33)
[2021-05-28] MEDS: GUAIFENESIN 200MG/10ML SUGAR FREE UDC PO PRN (09:42)
[2021-05-28] MEDS: CLOPIDOGREL 75MG TABLET PO SCH (09:43)
[2021-05-28] MEDS: LOSARTAN POTASSIUM 50 MG TABLET PO SCH (09:43)
[2021-05-28] MEDS: AMLODIPINE 5MG TABLET PO SCH (09:43)
[2021-05-28] MEDS: CARVEDILOL 6.25 MG TABLET PO SCH ×2 (09:43→20:33)
[2021-05-28 17:06] LABS: 25-HYDROXY VITAMIN D3 32 ng/mL (.)
[2021-05-28 20:00] VITALS: BP 135/59
[2021-05-28] MEDS: ATORVASTATIN CALCIUM 10MG TABLET PO SCH (20:32)
[2021-05-28] MEDS: SENNOSIDES/DOCUSATE SOD 8.6/50MG TABLET PO SCH (20:33)
[2021-05-28] MEDS: ENOXAPARIN 30MG/0.3ML SYR SUBCUT SCH (20:34)
[2021-05-29 08:00] VITALS: BP 137/68
[2021-05-29] MEDS: LOSARTAN POTASSIUM 50 MG TABLET PO SCH (08:45)
[2021-05-29] MEDS: AMLODIPINE 5MG TABLET PO SCH (08:45)
[2021-05-29] MEDS: CARVEDILOL 6.25 MG TABLET PO SCH (08:45)
[2021-05-29] MEDS: CLOPIDOGREL 75MG TABLET PO SCH (08:46)
[2021-05-29] MEDS: ACETAMINOPHEN 325MG TABLET PO PRN (08:46)
[2021-05-29] MEDS ORDERED: ERGOCALCIFEROL 50000UNITS CAPSULE PO SCH (10:00)
[2021-05-29 11:01] VITALS: BP 125/63
== END 2021-05-29 11:45 | DRG 91 ==
PROVIDERS: ADMIT Physical Medicine & Rehabilitation Spinal Cord Injury Medicine; ATTEND Family Medicine Adult Medicine
PROC: 4A10X4Z Monitoring of Central Nervous Electrical Activity, External Approach (ICD-10-PCS; principal; 2021-05-27)
DX: G92.8 Other toxic encephalopathy (principal); I21.4 Non-ST elevation (NSTEMI) myocardial infarction; F33.1 Major depressive disorder, recurrent, moderate; I50.30 Unspecified diastolic (congestive) heart failure; E11.9 Type 2 diabetes mellitus without complications; E78.00 Pure hypercholesterolemia, unspecified; E78.5 Hyperlipidemia, unspecified; F03.90 Unspecified dementia, unspecified severity, without behavioral disturbance, psychotic disturbance, mood disturbance, and anxiety; I11.0 Hypertensive heart disease with heart failure; I25.10 Atherosclerotic heart disease of native coronary artery without angina pectoris; R53.1 Weakness; I27.29 Other secondary pulmonary hypertension; I27.81 Cor pulmonale (chronic); J44.9 Chronic obstructive pulmonary disease, unspecified; E55.9 Vitamin D deficiency, unspecified; R13.10 Dysphagia, unspecified; R32 Unspecified urinary incontinence; Z20.822 Contact with and (suspected) exposure to COVID-19; R42 Dizziness and giddiness; R26.89 Other abnormalities of gait and mobility; E87.6 Hypokalemia; Z82.49 Family history of ischemic heart disease and other diseases of the circulatory system; Z86.73 Personal history of transient ischemic attack (TIA), and cerebral infarction without residual deficits; Z79.899 Other long term (current) drug therapy; R20.0 Anesthesia of skin; M79.609 Pain in unspecified limb
CPT/HCPCS: 36415; 71045; 80048; 80053; 81003; 82140; 82306; 83735; 84134; 84145; 85025; 87426; 92523; 92610; 93005; 93970; 97110; 97116; 97162; 97166; 97530; 97535; A6261; J1650; J2405

== ENCOUNTER 2021-12-14 14:34 | Inpatient (IN) | payer MEDICARE, BC ==
[~2021-12-14] VITALS: Ht 165.1 cm; Wt 61.2 kg
[~2021-12-14 14:34] MED LIST changes: +DONE-53 MT; -DONE10TA36 MT; +ENOX40SY27 SQ; -LOV40 SQ; +POTA-185 PO; -POTA10TA11 PO
[2021-12-14 20:00] VITALS: BP 114/77
[2021-12-14] MEDS ORDERED: ACETAMINOPHEN 325MG TABLET PO PRN (22:00)
[2021-12-14] MEDS ORDERED: ONDANSETRON HCL 4MG/2ML INJ IV PRN (22:00)
[2021-12-14] MEDS ORDERED: NITROGLYCERIN 0.4MG TABLET SL SL PRN (22:00)
[2021-12-14] MEDS ORDERED: ENOXAPARIN 40MG/0.4ML SYR SUBCUT SCH (22:00)
[2021-12-14] MEDS ORDERED: CLONIDINE 0.1MG TABLET PO PRN (22:00)
[2021-12-14] MEDS ORDERED: DOCUSATE SODIUM 100MG CAPSULE PO PRN (22:00)
[2021-12-14] MEDS ORDERED: IPRATROPIUM/ALBUTEROL 0.5-3(2.5)MG/3ML NEB NEB PRN (22:00)
[2021-12-14] MEDS ORDERED: GUAIFENESIN 200MG/10ML SUGAR FREE UDC PO PRN (22:00)
[2021-12-14] MEDS ORDERED: MAGNESIUM/ALUMINUM HYDROXIDE/SIMETHICONE 30ML UDC PO PRN (22:00)
[2021-12-14 23:14] VITALS: BP 135/75
[2021-12-14 23:18] LABS: T4 FREE 1.22 ng/dL (0.76-1.46)
[2021-12-15] VITALS: BP 154/82
[2021-12-15] MEDS: ACETAMINOPHEN 325MG TABLET PO PRN ×4 (00:09→22:34)
[2021-12-15] MEDS: ZOLPIDEM TARTRATE 5MG TABLET PO PRN ×2 (00:10→22:33)
[2021-12-15 00:11] LABS: VITAMIN B12 SERUM >2000 pg/mL pg/mL (211-911)
[2021-12-15 04:00] VITALS: BP 151/82
[2021-12-15] MEDS ORDERED: HYDROCODONE/ACETAMINOPHEN 5/325MG TABLET PO NR (04:30)
[2021-12-15] MEDS ORDERED: NALOXONE HCL 0.4MG/ML VIAL IV PRN (05:15)
[2021-12-15] MEDS ORDERED: DEXTROSE 50% WATER 50ML SYRINGE IV PRN (06:45)
[2021-12-15 07:15] LABS: BASOPHILS % 0.5 % (0.0-2.0); EOSINOPHILS % 3.4 % (0.0-5.0); HEMATOCRIT. 44.5 % (36.0-48.0); HEMOGLOBIN. 14.8 g/dL (12.0-16.0); LYMPHOCYTES % 16.7 % (20.0-50.0); MEAN CORPUSCULAR VOLUME 99.3 fL (81.0-99.0); MEAN PLATELET VOLUME 9.7 fl (7.4-10.4); MONOCYTES % 5.5 % (2.0-8.0); NEUTROPHILS % 73.9 % (40.0-76.0); PLATELET 230 x1000/uL (130-400); RED BLOOD CELL COUNT 4.48 mill/uL (4.2-5.4); RED CELL DISTRIBUTION WIDTH 16.1 % (11.6-14.6)
[2021-12-15 07:18] LABS: CHLORIDE 108 mEq/L (98-107)
[2021-12-15 07:40] LABS: HDL CHOLESTEROL 42 mg/dL (40-59); LDL CHOLESTEROL 103 mg/dL (5-100); PHOSPHORUS 2.4 mg/dL (2.5-4.9)
[2021-12-15 08:00] VITALS: BP 156/74
[2021-12-15] MEDS: AMLODIPINE 10MG TABLET PO SCH (10:57)
[2021-12-15] MEDS: DEXAMETHASONE 4MG TABLET PO SCH (10:58)
[2021-12-15] MEDS: CARVEDILOL 3.125 MG TABLET PO SCH ×2 (10:58→21:00)
[2021-12-15] MEDS: ASCORBIC ACID 500 MG TABLET PO SCH ×2 (10:59→21:00)
[2021-12-15] MEDS: ENOXAPARIN 30MG/0.3ML SYR SUBCUT SCH (10:59)
[2021-12-15] MEDS: CLOPIDOGREL 75MG TABLET PO SCH (10:59)
[2021-12-15] MEDS: FAMOTIDINE 20MG TABLET PO SCH (11:00)
[2021-12-15] MEDS: ZINC SULFATE 220 MG ( 50 ) CAPSULE PO SCH (11:00)
[2021-12-15] MEDS ORDERED: POTASSIUM PHOS,M-BASIC-D-BASIC 10 MMOL in DEXT 5% WATER 246.6667 ML IV NR (11:30)
[2021-12-15 16:00] VITALS: BP 137/74
[2021-12-15 20:00] VITALS: BP 128/61
[2021-12-15] MEDS: ATORVASTATIN CALCIUM 10MG TABLET PO SCH (21:00)
[2021-12-16] VITALS: BP 116/80
[2021-12-16 04:00] VITALS: BP 107/71
[2021-12-16] MEDS: ACETAMINOPHEN 325MG TABLET PO PRN (05:30)
[2021-12-16 07:45] LABS: HEMATOCRIT. 44.6 % (36.0-48.0); HEMOGLOBIN. 14.9 g/dL (12.0-16.0); MEAN CORPUSCULAR HEMOGLOBIN 33.2 pg (28.0-32.0); MEAN CORPUSCULAR VOLUME 99.4 fL (81.0-99.0); PLATELET 237 x1000/uL (130-400); RED BLOOD CELL COUNT 4.49 mill/uL (4.2-5.4); RED CELL DISTRIBUTION WIDTH 16.3 % (11.6-14.6)
[2021-12-16 08:26] LABS: CHLORIDE 105 mEq/L (98-107)
[2021-12-16 08:39] LABS: PHOSPHORUS 2.5 mg/dL (2.5-4.9)
[2021-12-16] MEDS: ZINC SULFATE 220 MG ( 50 ) CAPSULE PO SCH (09:45)
[2021-12-16] MEDS: AMLODIPINE 10MG TABLET PO SCH (09:46)
[2021-12-16] MEDS: FAMOTIDINE 20MG TABLET PO SCH (09:46)
[2021-12-16] MEDS: CARVEDILOL 3.125 MG TABLET PO SCH ×3 (09:46→20:48)
[2021-12-16] MEDS: ASCORBIC ACID 500 MG TABLET PO SCH ×3 (09:47→20:49)
[2021-12-16] MEDS: CLOPIDOGREL 75MG TABLET PO SCH (09:47)
[2021-12-16] MEDS: DEXAMETHASONE 4MG TABLET PO SCH (09:47)
[2021-12-16] MEDS: ENOXAPARIN 30MG/0.3ML SYR SUBCUT SCH (09:47)
[2021-12-16 12:20] LABS: PLATELET ESTIMATE NORMAL
[2021-12-16 19:22] LABS: CLARITY URINE CLEAR (CLEAR); COLOR URINE YELLOW (YELLOW); KETONES URINE TRACE (NEGATIVE); LEUKOCYTE ESTERASE URINE 1+ (NEGATIVE); NITRITE URINE POSITIVE (NEGATIVE); OCCULT BLOOD URINE NEGATIVE (NEGATIVE); PH URINE 5.5 (4.5-8.0); PROTEIN URINE 1+ (NEGATIVE); SPECIFIC GRAVITY URINE 1.027 (1.005-1.030); UROBILINOGEN URINE 0.2 E.U./dL (0.2-1.0)
[2021-12-16 20:00] VITALS: BP 125/52
[2021-12-16] MEDS: ATORVASTATIN CALCIUM 10MG TABLET PO SCH (20:47)
[2021-12-17] VITALS: BP 124/50
[2021-12-17 04:00] VITALS: BP 132/58
[2021-12-17 08:00] VITALS: BP 167/90
[2021-12-17] MEDS: ZINC SULFATE 220 MG ( 50 ) CAPSULE PO SCH (09:32)
[2021-12-17] MEDS: CLOPIDOGREL 75MG TABLET PO SCH (09:32)
[2021-12-17] MEDS: FAMOTIDINE 20MG TABLET PO SCH (09:32)
[2021-12-17] MEDS: DEXAMETHASONE 4MG TABLET PO SCH (09:32)
[2021-12-17] MEDS: AMLODIPINE 10MG TABLET PO SCH (09:33)
[2021-12-17] MEDS: ENOXAPARIN 30MG/0.3ML SYR SUBCUT SCH (09:33)
[2021-12-17] MEDS ORDERED: CEFTRIAXONE 1 G PREMIX 50 ML IV SCH (11:00)
[2021-12-17 12:00] VITALS: BP 148/77
[2021-12-17] MEDS: CEFTRIAXONE 1,000 MG in DEXTROSE 5% WATER 50 ML IV SCH (13:00)
[2021-12-17 16:00] VITALS: BP 168/78
[2021-12-17] MEDS: ACETAMINOPHEN 325MG TABLET PO PRN (18:18)
[2021-12-17 20:00] VITALS: BP 102/66
[2021-12-17] MEDS: ATORVASTATIN CALCIUM 10MG TABLET PO SCH (20:15)
[2021-12-17] MEDS: ZOLPIDEM TARTRATE 5MG TABLET PO PRN (20:15)
[2021-12-17] MEDS: ASCORBIC ACID 500 MG TABLET PO SCH (20:23)
[2021-12-17] MEDS: CARVEDILOL 3.125 MG TABLET PO SCH (20:23)
[2021-12-18] VITALS: BP 154/70
[2021-12-18 04:00] VITALS: BP 165/90
[2021-12-18 08:00] VITALS: BP 176/93
[2021-12-18] MEDS: ZINC SULFATE 220 MG ( 50 ) CAPSULE PO SCH (09:26)
[2021-12-18] MEDS: AMLODIPINE 10MG TABLET PO SCH (09:27)
[2021-12-18] MEDS: ASCORBIC ACID 500 MG TABLET PO SCH ×2 (09:27→20:14)
[2021-12-18] MEDS: DEXAMETHASONE 4MG TABLET PO SCH (09:27)
[2021-12-18] MEDS: FAMOTIDINE 20MG TABLET PO SCH (09:27)
[2021-12-18] MEDS: CLOPIDOGREL 75MG TABLET PO SCH (09:27)
[2021-12-18] MEDS: CARVEDILOL 3.125 MG TABLET PO SCH ×2 (09:27→20:26)
[2021-12-18] MEDS: ENOXAPARIN 30MG/0.3ML SYR SUBCUT SCH (09:31)
[2021-12-18] MEDS: ACETAMINOPHEN 325MG TABLET PO PRN ×2 (11:14→16:54)
[2021-12-18 12:00] VITALS: BP 127/52
[2021-12-18] MEDS: CEFTRIAXONE 1,000 MG in DEXTROSE 5% WATER 50 ML IV SCH (14:35)
[2021-12-18 16:00] VITALS: BP 133/70
[2021-12-18 20:00] VITALS: BP 122/61
[2021-12-18] MEDS: ATORVASTATIN CALCIUM 10MG TABLET PO SCH (20:14)
[2021-12-18] MEDS: ZOLPIDEM TARTRATE 5MG TABLET PO PRN (20:14)
[2021-12-19] VITALS: BP 150/63
[2021-12-19] MEDS: ACETAMINOPHEN 325MG TABLET PO PRN ×3 (00:37→20:03)
[2021-12-19 08:00] VITALS: BP 114/87
[2021-12-19] MEDS: CLOPIDOGREL 75MG TABLET PO SCH (08:32)
[2021-12-19] MEDS: CARVEDILOL 3.125 MG TABLET PO SCH ×2 (08:32→20:13)
[2021-12-19] MEDS: AMLODIPINE 10MG TABLET PO SCH (08:33)
[2021-12-19] MEDS: ENOXAPARIN 30MG/0.3ML SYR SUBCUT SCH (08:33)
[2021-12-19] MEDS: ASCORBIC ACID 500 MG TABLET PO SCH ×2 (08:33→20:02)
[2021-12-19] MEDS: ZINC SULFATE 220 MG ( 50 ) CAPSULE PO SCH (08:33)
[2021-12-19] MEDS: FAMOTIDINE 20MG TABLET PO SCH (08:33)
[2021-12-19] MEDS: DEXAMETHASONE 4MG TABLET PO SCH (08:34)
[2021-12-19 12:00] VITALS: BP 144/73
[2021-12-19] MEDS: CEFTRIAXONE 1,000 MG in DEXTROSE 5% WATER 50 ML IV SCH (12:32)
[2021-12-19 16:00] VITALS: BP 119/72
[2021-12-19] MEDS: ZOLPIDEM TARTRATE 5MG TABLET PO PRN (20:02)
[2021-12-19] MEDS: ATORVASTATIN CALCIUM 10MG TABLET PO SCH (20:02)
[2021-12-20 00:49] VITALS: BP 143/45
[2021-12-20 06:53] VITALS: BP 148/74
[2021-12-20 08:00] VITALS: BP 122/72
[2021-12-20] MEDS: AMLODIPINE 10MG TABLET PO SCH (09:31)
[2021-12-20] MEDS: FAMOTIDINE 20MG TABLET PO SCH (09:31)
[2021-12-20] MEDS: ZINC SULFATE 220 MG ( 50 ) CAPSULE PO SCH (09:31)
[2021-12-20] MEDS: ASCORBIC ACID 500 MG TABLET PO SCH (09:31)
[2021-12-20] MEDS: CARVEDILOL 3.125 MG TABLET PO SCH (09:32)
[2021-12-20] MEDS: DEXAMETHASONE 4MG TABLET PO SCH (09:32)
[2021-12-20] MEDS: ENOXAPARIN 30MG/0.3ML SYR SUBCUT SCH (09:33)
[2021-12-20] MEDS: CLOPIDOGREL 75MG TABLET PO SCH (09:33)
[2021-12-20 12:00] VITALS: BP 118/78
[2021-12-20] MEDS: ACETAMINOPHEN 325MG TABLET PO PRN (12:59)
[2021-12-20] MEDS: CEFTRIAXONE 1,000 MG in DEXTROSE 5% WATER 50 ML IV SCH (13:04)
[2021-12-20 15:56] VITALS: BP 118/72
== END 2021-12-20 15:52 | DRG 91 ==
LOC: 6EST 20:47
PROVIDERS: ADMIT Internal Medicine; ATTEND Internal Medicine
DX: G92.8 Other toxic encephalopathy (principal); I50.43 Acute on chronic combined systolic (congestive) and diastolic (congestive) heart failure; E46 Unspecified protein-calorie malnutrition; I11.0 Hypertensive heart disease with heart failure; D50.9 Iron deficiency anemia, unspecified; E11.9 Type 2 diabetes mellitus without complications; J44.9 Chronic obstructive pulmonary disease, unspecified; E78.00 Pure hypercholesterolemia, unspecified; L89.159 Pressure ulcer of sacral region, unspecified stage; I25.10 Atherosclerotic heart disease of native coronary artery without angina pectoris; Z86.73 Personal history of transient ischemic attack (TIA), and cerebral infarction without residual deficits; F03.90 Unspecified dementia, unspecified severity, without behavioral disturbance, psychotic disturbance, mood disturbance, and anxiety; Z68.22 Body mass index [BMI] 22.0-22.9, adult; I25.2 Old myocardial infarction; Z79.02 Long term (current) use of antithrombotics/antiplatelets; Z79.4 Long term (current) use of insulin; Z79.899 Other long term (current) drug therapy; Z88.2 Allergy status to sulfonamides; Z88.8 Allergy status to other drugs, medicaments and biological substances; Z91.89 Other specified personal risk factors, not elsewhere classified
CPT/HCPCS: 36415; 80053; 80061; 81003; 82607; 82746; 82962; 83036; 83540; 83550; 83735; 83880; 84100; 84134; 84439; 84443; 85025; 87077; 87186; 93970; C1893; J0696; J1650; J2405; J3490; J7060; J8540

== ENCOUNTER 2022-03-16 08:18 | Inpatient (IN) | payer MEDICARE, BC, MEDICAID ==
[~2022-03-16] VITALS: Ht 167.6 cm; Wt 61.2 kg
[2022-03-16] MEDS ORDERED: PIPERACILLIN/TAZ 3.375G PREMIX 50 ML IV ONE (08:45)
[2022-03-16] MEDS ORDERED: SODIUM CHLORIDE 0.9% 1000ML BAG (SEPSIS BOLUS) IV ONE (08:45)
[2022-03-16] MEDS ORDERED: VANCOMYCIN 1G PREMIX 200 ML IV ONE (08:45)
[2022-03-16 09:03] LABS: BASOPHILS % 0.1 % (0.0-2.0); EOSINOPHILS % 1.1 % (0.0-5.0); HEMATOCRIT. 47.2 % (36.0-48.0); HEMOGLOBIN. 14.1 g/dL (12.0-16.0); MEAN CORPUSCULAR HEMOGLOBIN 31.7 pg (28.0-32.0); MEAN CORPUSCULAR VOLUME 105.9 fL (81.0-99.0); MEAN PLATELET VOLUME 12.6 fl (7.4-10.4); MONOCYTES % 3.1 % (2.0-8.0); NEUTROPHILS % 87.7 % (40.0-76.0); PLATELET 137 x1000/uL (130-400); RED BLOOD CELL COUNT 4.46 mill/uL (4.2-5.4); RED CELL DISTRIBUTION WIDTH 16.4 % (11.6-14.6)
[2022-03-16 09:28] LABS: BG BASE EXCESS 3.2 mmol/L (-2.0-2.0); BG CARBOXYHEMOGLOBIN 1.9 % (0.5-1.5); BG DEOXYHEMOGLOBIN 3.6 % (0.0-5.0); BG FRACTION INSPIRED OXYGEN 100; BG HCO3 ACT 30.4 mmol/L (22.0-26.0); BG METHEMOGLOBIN 0.2 % (0.0-1.5); BG OXYGEN SATURATION 96.3 % (92.0-98.5); BG OXYHEMOGLOBIN 94.3 % (94.0-97.0); BG PH 7.345 (7.350-7.450); BG PO2 85.3 mmHg (75.0-100.0); BG SAMPLE SITE RIGHT RADIAL; BG TOTAL HEMOGLOBIN 14.6 g/dL (12.0-18.0); BG VENT MODE MASK - NRB
[2022-03-16 09:29] LABS: CHLORIDE 135 mEq/L (98-107)
[2022-03-16 10:07] LABS: CLARITY URINE CLOUDY (CLEAR); COLOR URINE DARK YELLOW (YELLOW); KETONES URINE NEGATIVE (NEGATIVE); LEUKOCYTE ESTERASE URINE 2+ (NEGATIVE); NITRITE URINE NEGATIVE (NEGATIVE); OCCULT BLOOD URINE NEGATIVE (NEGATIVE); PROTEIN URINE 2+ (NEGATIVE); SPECIFIC GRAVITY URINE 1.026 (1.005-1.030)
[2022-03-16 10:16] LABS: INR 1.1; PROTHROMBIN TIME 11.9 sec (9.6-11.0)
[2022-03-16] MEDS ORDERED: DEXTROSE 50% WATER 50ML SYRINGE IV ONE (11:00)
[2022-03-16] MEDS ORDERED: INSULIN REGULAR (HUMULIN R) 300UNITS/3ML VIAL IV ONE (11:00)
[2022-03-16] MEDS ORDERED: SODIUM BICARBONATE 8.4% 1 MEQ/ML 50ML SYR IV ONE (11:00)
[2022-03-16] MEDS ORDERED: CALCIUM CHLORIDE 1GM/10ML SYR IV ONE (11:00)
[2022-03-16] MEDS ORDERED: ALBUTEROL (0.083%) 2.5MG/3ML NEB HHN ONE (11:00)
[2022-03-16] MEDS ORDERED: SODIUM BICARBONATE 8.4% 1 MEQ/ML 50ML SYR IV NR (12:00)
[2022-03-16] MEDS ORDERED: ACETAMINOPHEN 325MG TABLET PO PRN (14:30)
[2022-03-16] MEDS ORDERED: IPRATROPIUM/ALBUTEROL 0.5-3(2.5)MG/3ML NEB HHN PRN (14:30)
[2022-03-16] MEDS ORDERED: ACETAMINOPHEN 650MG SUPP PR PRN (14:30)
[2022-03-16] MEDS ORDERED: CEFTRIAXONE 1 G PREMIX 50 ML IV NR (15:00)
[2022-03-16] MEDS ORDERED: AZITHROMYCIN 500MG/250ML 250 ML IV NR (15:00)
[2022-03-16 15:15] LABS: CHLORIDE 138 mEq/L (98-107)
[2022-03-16] MEDS ORDERED: ONDANSETRON HCL 4MG/2ML INJ IV PRN (18:30)
[2022-03-16] MEDS: DEXTROSE 5% WATER 1,000 ML IV SCH ×2 (18:44→21:42)
[2022-03-16] MEDS: IPRATROPIUM/ALBUTEROL 0.5-3(2.5)MG/3ML NEB HHN SCH ×2 (18:46→20:22)
[2022-03-16] MEDS ORDERED: VANCOMYCIN 1.25GM PMX (XELLIA) 250 ML IV SCH (20:00)
[2022-03-16 20:55] VITALS: BP 105/54
[2022-03-16 21:00] VITALS: BP 105/54
[2022-03-16] MEDS: INSULIN LISPRO 100 UNITS/ML SUBCUT SCH (21:00)
[2022-03-16] MEDS: BLOOD SUGAR DIAGNOSTIC STRIP TEST SCH (21:41)
[2022-03-16] MEDS ORDERED: ALBUTEROL (0.083%) 2.5MG/3ML NEB HHN PRN (22:00)
[2022-03-16] MEDS: ENOXAPARIN 40MG/0.4ML SYR SUBCUT SCH (22:00)
[2022-03-16] MEDS ORDERED: IPRATROPIUM BROMIDE (0.02%) 0.5MG/2.5ML NEB HHN PRN (22:00)
[2022-03-16] MEDS ORDERED: PIPERACILLIN/TAZOBACTAM 3.375 G in DEXTROSE 5% WATER 50 ML IV SCH (22:00)
[2022-03-17] VITALS (7 sets, daily range): BP systolic 103–132; BP diastolic 42–65
[2022-03-17] MEDS ORDERED: ALBUTEROL (0.5%) 2.5MG/0.5ML NEB HHN SCH
[2022-03-17] MEDS ORDERED: IPRATROPIUM/ALBUTEROL 0.5-3(2.5)MG/3ML NEB HHN SCH
[2022-03-17] MEDS ORDERED: FOLI-43 MT (01:02)
[2022-03-17] MEDS ORDERED: SENN1TAB35 PO (01:02)
[2022-03-17] MEDS ORDERED: LACT10SO6 MT (01:02)
[2022-03-17] MEDS ORDERED: AMLO5TAB88 MT (01:02)
[2022-03-17] MEDS ORDERED: MULT-626 PO (01:02)
[2022-03-17] MEDS ORDERED: CARV6.2548 MT (01:02)
[2022-03-17] MEDS ORDERED: CLON0.1T PO (01:02)
[2022-03-17] MEDS ORDERED: CYAN-50 IM (01:02)
[2022-03-17] MEDS ORDERED: HYDR-4001 MT (01:02)
[2022-03-17] MEDS ORDERED: LOSA50TA3 MT (01:02)
[2022-03-17] MEDS ORDERED: FE300LUD MT (01:02)
[2022-03-17] MEDS ORDERED: ACET-2708 MT (01:03)
[2022-03-17] MEDS ORDERED: ASCO500C18 MT (01:03)
[2022-03-17] MEDS ORDERED: TOPUD MT (01:03)
[2022-03-17] MEDS: IPRATROPIUM BROMIDE (0.02%) 0.5MG/2.5ML NEB HHN SCH ×4 (02:36→23:08)
[2022-03-17] MEDS: ALBUTEROL (0.083%) 2.5MG/3ML NEB HHN SCH ×4 (02:37→23:08)
[2022-03-17] MEDS: BLOOD SUGAR DIAGNOSTIC STRIP TEST SCH ×4 (06:24→20:41)
[2022-03-17] MEDS: INSULIN LISPRO 100 UNITS/ML SUBCUT SCH ×4 (06:24→20:41)
[2022-03-17 07:09] LABS: HEMATOCRIT. 40.3 % (36.0-48.0); HEMOGLOBIN. 12.5 g/dL (12.0-16.0); MEAN CORPUSCULAR HEMOGLOBIN 32.1 pg (28.0-32.0); MEAN CORPUSCULAR VOLUME 103.5 fL (81.0-99.0); MEAN PLATELET VOLUME 12.1 fl (7.4-10.4); PLATELET 109 x1000/uL (130-400); RED BLOOD CELL COUNT 3.89 mill/uL (4.2-5.4); RED CELL DISTRIBUTION WIDTH 16.1 % (11.6-14.6)
[2022-03-17 07:34] LABS: CHLORIDE 131 mEq/L (98-107)
[2022-03-17 07:42] LABS: HDL CHOLESTEROL 21 mg/dL (40-59); LDL CHOLESTEROL 49 mg/dL (5-100)
[2022-03-17 09:35] LABS: BG CARBOXYHEMOGLOBIN 0.8 % (0.5-1.5); BG DEOXYHEMOGLOBIN 4.3 % (0.0-5.0); BG FRACTION INSPIRED OXYGEN 60; BG HCO3 ACT 30.2 mmol/L (22.0-26.0); BG METHEMOGLOBIN 0.3 % (0.0-1.5); BG OXYGEN SATURATION 95.7 % (92.0-98.5); BG OXYHEMOGLOBIN 94.6 % (94.0-97.0); BG PCO2 52.1 mmHg (35.0-45.0); BG PH 7.381 (7.350-7.450); BG PO2 74.6 mmHg (75.0-100.0); BG SAMPLE SITE LEFT RADIAL; BG TOTAL HEMOGLOBIN 12.8 g/dL (12.0-18.0); BG VENT MODE MASK - SIMPLE
[2022-03-17] MEDS ORDERED: PNEUMOCOCCAL 23-VAL P-SAC VAC 0.5 ML IM ONE (11:00)
[2022-03-17] MEDS ORDERED: AZITHROMYCIN 500 MG in DEXT 5% WATER 250 ML IV SCH (15:00)
[2022-03-17] MEDS: CEFTRIAXONE 1,000 MG in DEXTROSE 5% WATER 50 ML IV SCH (15:21)
[2022-03-17 16:32] LABS: PLATELET ESTIMATE DECREASED
[2022-03-17] MEDS: DEXTROSE 5% WATER 1,000 ML IV SCH (20:27)
[2022-03-17] MEDS: ENOXAPARIN 40MG/0.4ML SYR SUBCUT SCH (20:41)
[2022-03-17] MEDS ORDERED: VANCOMYCIN 1G PREMIX 200 ML IV SCH (22:00)
[2022-03-17] MEDS ORDERED: MAGNESIUM 1 G PREMIX 100 ML IV NR (23:00)
[2022-03-18] VITALS: BP 111/45
[2022-03-18] MEDS: IPRATROPIUM BROMIDE (0.02%) 0.5MG/2.5ML NEB HHN SCH ×4 (02:45→22:39)
[2022-03-18] MEDS: ALBUTEROL (0.083%) 2.5MG/3ML NEB HHN SCH ×4 (02:45→22:39)
[2022-03-18 04:00] VITALS: BP 123/52
[2022-03-18] MEDS: DEXTROSE 50% WATER 50ML SYRINGE IV PRN ×2 (05:40→17:17)
[2022-03-18] MEDS: BLOOD SUGAR DIAGNOSTIC STRIP TEST SCH ×4 (06:16→20:32)
[2022-03-18] MEDS: INSULIN LISPRO 100 UNITS/ML SUBCUT SCH ×4 (06:16→20:32)
[2022-03-18 07:26] LABS: CHLORIDE 124 mEq/L (98-107)
[2022-03-18 07:37] LABS: HEMATOCRIT. 39.4 % (36.0-48.0); HEMOGLOBIN. 12.4 g/dL (12.0-16.0); MEAN CORPUSCULAR HEMOGLOBIN 32.2 pg (28.0-32.0); MEAN CORPUSCULAR VOLUME 102.8 fL (81.0-99.0); MEAN PLATELET VOLUME 13.5 fl (7.4-10.4); PLATELET 125 x1000/uL (130-400); RED BLOOD CELL COUNT 3.84 mill/uL (4.2-5.4); RED CELL DISTRIBUTION WIDTH 15.7 % (11.6-14.6)
[2022-03-18 07:44] LABS: PHOSPHORUS 2.1 mg/dL (2.5-4.9)
[2022-03-18 08:00] VITALS: BP 111/52
[2022-03-18 12:00] VITALS: BP 123/61
[2022-03-18] MEDS ORDERED: POTASSIUM PHOS,M-BASIC-D-BASIC 10 MMOL in DEXT 5% WATER 246.6667 ML IV NR (13:00)
[2022-03-18] MEDS: AZITHROMYCIN 500 MG in DEXT 5% WATER 250 ML IV SCH (14:54)
[2022-03-18 16:00] VITALS: BP 130/56
[2022-03-18] MEDS: CEFTRIAXONE 1,000 MG in DEXTROSE 5% WATER 50 ML IV SCH (18:53)
[2022-03-18 20:00] VITALS: BP 117/64
[2022-03-18] MEDS: VANCOMYCIN 750MG PREMIX 150 ML IV SCH (20:32)
[2022-03-18] MEDS: ENOXAPARIN 40MG/0.4ML SYR SUBCUT SCH (20:33)
[2022-03-19] VITALS: BP 138/63
[2022-03-19] MEDS: ACETYLCYSTEINE 100MG/ML 10% VIAL 4ML INH SCH ×3 (02:10→15:42)
[2022-03-19] MEDS: IPRATROPIUM BROMIDE (0.02%) 0.5MG/2.5ML NEB HHN SCH ×4 (02:10→21:55)
[2022-03-19] MEDS: ALBUTEROL (0.083%) 2.5MG/3ML NEB HHN SCH ×4 (02:11→21:55)
[2022-03-19 04:00] VITALS: BP 136/51
[2022-03-19] MEDS: BLOOD SUGAR DIAGNOSTIC STRIP TEST SCH ×4 (06:16→20:54)
[2022-03-19] MEDS: INSULIN LISPRO 100 UNITS/ML SUBCUT SCH ×4 (06:16→20:54)
[2022-03-19 07:00] LABS: CHLORIDE 119 mEq/L (98-107)
[2022-03-19 07:07] LABS: HEMATOCRIT. 37.7 % (36.0-48.0); MEAN CORPUSCULAR HEMOGLOBIN 31.9 pg (28.0-32.0); MEAN CORPUSCULAR VOLUME 100.2 fL (81.0-99.0); MEAN PLATELET VOLUME 12.6 fl (7.4-10.4); PLATELET 136 x1000/uL (130-400); RED BLOOD CELL COUNT 3.77 mill/uL (4.2-5.4); RED CELL DISTRIBUTION WIDTH 15.1 % (11.6-14.6)
[2022-03-19 07:10] LABS: PHOSPHORUS 2.2 mg/dL (2.5-4.9)
[2022-03-19 08:00] VITALS: BP 129/68
[2022-03-19 12:00] VITALS: BP 133/73
[2022-03-19] MEDS: VANCOMYCIN 750MG PREMIX 150 ML IV SCH (13:07)
[2022-03-19] MEDS: DEXTROSE 5% WATER 1,000 ML IV SCH (13:08)
[2022-03-19 13:17] LABS: PLATELET ESTIMATE SLIGHTLY DECREASED
[2022-03-19] MEDS: AZITHROMYCIN 500 MG in DEXT 5% WATER 250 ML IV SCH (13:55)
[2022-03-19] MEDS: CEFTRIAXONE 1,000 MG in DEXTROSE 5% WATER 50 ML IV SCH (14:54)
[2022-03-19 16:00] VITALS: BP 148/82
[2022-03-19 20:00] VITALS: BP 149/69
[2022-03-19] MEDS: ENOXAPARIN 40MG/0.4ML SYR SUBCUT SCH (20:59)
[2022-03-20] VITALS: BP 140/73
[2022-03-20] MEDS ORDERED: POTASSIUM PHOS,M-BASIC-D-BASIC 10 MMOL in DEXT 5% WATER 246.6667 ML IV NR (01:00)
[2022-03-20] MEDS: ALBUTEROL (0.083%) 2.5MG/3ML NEB HHN SCH ×4 (01:47→20:15)
[2022-03-20] MEDS: IPRATROPIUM BROMIDE (0.02%) 0.5MG/2.5ML NEB HHN SCH ×4 (01:48→20:15)
[2022-03-20] MEDS: ACETYLCYSTEINE 100MG/ML 10% VIAL 4ML INH SCH ×3 (01:48→16:13)
[2022-03-20 04:00] VITALS: BP 137/59
[2022-03-20 05:59] LABS: CHLORIDE 114 mEq/L (98-107)
[2022-03-20 06:48] LABS: HEMATOCRIT. 37.8 % (36.0-48.0); HEMOGLOBIN. 12.5 g/dL (12.0-16.0); MEAN CORPUSCULAR HEMOGLOBIN 32.3 pg (28.0-32.0); MEAN CORPUSCULAR VOLUME 97.9 fL (81.0-99.0); MEAN PLATELET VOLUME 12.4 fl (7.4-10.4); PLATELET 150 x1000/uL (130-400); RED BLOOD CELL COUNT 3.86 mill/uL (4.2-5.4); RED CELL DISTRIBUTION WIDTH 14.7 % (11.6-14.6)
[2022-03-20] MEDS: BLOOD SUGAR DIAGNOSTIC STRIP TEST SCH ×4 (07:18→20:57)
[2022-03-20] MEDS: INSULIN LISPRO 100 UNITS/ML SUBCUT SCH ×4 (07:19→20:58)
[2022-03-20 08:00] VITALS: BP 159/78
[2022-03-20] MEDS: DEXTROSE 5% WATER 1,000 ML IV SCH (08:59)
[2022-03-20] MEDS: VANCOMYCIN 750MG PREMIX 150 ML IV SCH (08:59)
[2022-03-20 12:00] VITALS: BP 148/78
[2022-03-20] MEDS: AZITHROMYCIN 500 MG in DEXT 5% WATER 250 ML IV SCH (13:36)
[2022-03-20] MEDS: CEFTRIAXONE 1,000 MG in DEXTROSE 5% WATER 50 ML IV SCH (15:31)
[2022-03-20 16:00] VITALS: BP 147/83
[2022-03-20 17:20] LABS: PLATELET ESTIMATE NORMAL
[2022-03-20 20:00] VITALS: BP 168/92
[2022-03-20] MEDS: ENOXAPARIN 40MG/0.4ML SYR SUBCUT SCH (20:57)
[2022-03-21] VITALS (7 sets, daily range): BP systolic 135–159; BP diastolic 70–82
[2022-03-21] MEDS: VANCOMYCIN 750MG PREMIX 150 ML IV SCH (01:27)
[2022-03-21] MEDS: IPRATROPIUM BROMIDE (0.02%) 0.5MG/2.5ML NEB HHN SCH ×4 (02:14→21:07)
[2022-03-21] MEDS: ALBUTEROL (0.083%) 2.5MG/3ML NEB HHN SCH ×4 (02:14→21:07)
[2022-03-21] MEDS: INSULIN LISPRO 100 UNITS/ML SUBCUT SCH ×4 (06:20→21:00)
[2022-03-21] MEDS: BLOOD SUGAR DIAGNOSTIC STRIP TEST SCH ×4 (06:20→21:26)
[2022-03-21 06:21] LABS: BASOPHILS % 0.2 % (0.0-2.0); EOSINOPHILS % 2.9 % (0.0-5.0); HEMATOCRIT. 39.8 % (36.0-48.0); HEMOGLOBIN. 13.2 g/dL (12.0-16.0); LYMPHOCYTES % 9.5 % (20.0-50.0); MEAN CORPUSCULAR HEMOGLOBIN 32.2 pg (28.0-32.0); MEAN CORPUSCULAR VOLUME 96.8 fL (81.0-99.0); MEAN PLATELET VOLUME 11.6 fl (7.4-10.4); MONOCYTES % 4.1 % (2.0-8.0); NEUTROPHILS % 83.3 % (40.0-76.0); PLATELET 148 x1000/uL (130-400); RED BLOOD CELL COUNT 4.11 mill/uL (4.2-5.4); RED CELL DISTRIBUTION WIDTH 14.2 % (11.6-14.6)
[2022-03-21 06:38] LABS: CHLORIDE 109 mEq/L (98-107)
[2022-03-21 06:45] LABS: PHOSPHORUS 2.5 mg/dL (2.5-4.9)
[2022-03-21] MEDS: ACETYLCYSTEINE 100MG/ML 10% VIAL 4ML INH SCH (08:24)
[2022-03-21] MEDS: DEXTROSE 5% WATER 1,000 ML IV SCH (08:50)
[2022-03-21 14:40] LABS: NUCLEATED RED BLOOD CELLS 1 /100 WBC; PLATELET ESTIMATE NORMAL
[2022-03-21] MEDS: CEFTRIAXONE 1,000 MG in DEXTROSE 5% WATER 50 ML IV SCH (15:45)
[2022-03-21] MEDS ORDERED: HYDRALAZINE 20MG/ML VIAL IV NR (20:30)
[2022-03-21] MEDS: DEXTROSE 50% WATER 50ML SYRINGE IV PRN (21:30)
[2022-03-21] MEDS: ENOXAPARIN 40MG/0.4ML SYR SUBCUT SCH (21:42)
== END 2022-03-22 00:35 | DRG 871 ==
LOC: ER 08:18 → EDBEDREQ 08:40 → 8WST 10:55 → EDBEDREQSVC 10:59 → EDBEDREQ 10:59 → EDBEDREQTM 10:59
PROVIDERS: ADMIT Family Medicine; ATTEND Family Medicine
DX: A41.9 Sepsis, unspecified organism (principal); E43 Unspecified severe protein-calorie malnutrition; J96.01 Acute respiratory failure with hypoxia; J18.9 Pneumonia, unspecified organism; N39.0 Urinary tract infection, site not specified; E87.0 Hyperosmolality and hypernatremia; I50.22 Chronic systolic (congestive) heart failure; E87.20 Acidosis, unspecified; J44.0 Chronic obstructive pulmonary disease with (acute) lower respiratory infection; I11.0 Hypertensive heart disease with heart failure; Z20.822 Contact with and (suspected) exposure to COVID-19; I25.10 Atherosclerotic heart disease of native coronary artery without angina pectoris; J44.9 Chronic obstructive pulmonary disease, unspecified; E11.9 Type 2 diabetes mellitus without complications; E78.00 Pure hypercholesterolemia, unspecified; E78.5 Hyperlipidemia, unspecified; R62.7 Adult failure to thrive; R65.20 Severe sepsis without septic shock; R13.12 Dysphagia, oropharyngeal phase; E86.0 Dehydration; E87.5 Hyperkalemia; I27.20 Pulmonary hypertension, unspecified; S30.0XXA Contusion of lower back and pelvis, initial encounter; F03.90 Unspecified dementia, unspecified severity, without behavioral disturbance, psychotic disturbance, mood disturbance, and anxiety; X58.XXXA Exposure to other specified factors, initial encounter; Z74.01 Bed confinement status; Z86.73 Personal history of transient ischemic attack (TIA), and cerebral infarction without residual deficits; Z98.82 Breast implant status; Z88.2 Allergy status to sulfonamides; Z88.8 Allergy status to other drugs, medicaments and biological substances; Z79.899 Other long term (current) drug therapy; Z68.21 Body mass index [BMI] 21.0-21.9, adult; Y93.89 Activity, other specified; Y92.89 Other specified places as the place of occurrence of the external cause; Y99.8 Other external cause status
CPT/HCPCS: 36415; 36600; 71045; 80048; 80053; 80061; 80202; 81003; 82040; 82375; 82805; 82962; 83036; 83605; 83735; 83880; 84100; 84134; 84145; 84484; 85025; 87426; 87804; 92610; 93005; 93306; 94640; 99291; C9803; J0360; J0456; J0696; J1650; J2543; J3370; J3475; J3490; J7030; J7060; J7608; A4315

== ENCOUNTER 2022-04-04 11:46 | Inpatient (IN) | payer MEDICARE, BC, MEDICAID ==
[~2022-04-04] VITALS: Ht 157.5 cm; Wt 93.0 kg
[~2022-04-04 11:46] MED LIST changes: +ACET-2708 MT; -ALBU2SYR3 PO; -AMLO2.5T45 PO; +AMLO5TAB88 PO; +ASCO500C18 MT; -BRIM10DR2 OP; -BUDE0.5A3 IH; +CARV6.2548 PO; +CLON0.1T PO; -CRES10 MT; +CYAN-50 IM; -DEXT15DR5 EACHEYE; -DONE-53 MT; -DUONEB3 ML INH; -ENOX40SY27 SQ; -ESTR1PAT TD; -FAMO40TA70 PO; +FE300LUD PO; -FLUO20CA39 MT; -FLUT16SP15 BOTHNSTRLS; -FLUT1DIS INH; +FOLI-43 MT; +HYDR-4001 PO; +LACT10SO6 PO; -LOSA25TA3 MT; +LOSA50TA3 PO; -LTMX5 EACHEYE; -MECL-159 PO; -METO-539 MT; +MULT-626 PO; -OXYB5TAB16 PO; -OXYB5TAB17 PO; -PLAVIX PO; -POTA-185 PO; -PRAV40TA58 PO; -PREDNISOLONE; +SENN1TAB35 PO; -SYSOS EACHEYE; -TELM1TAB MT; +TOPUD MT; -ZOLP5TAB2 PO; -ZOLP5TAB8 PO
[2022-04-04 12:20] LABS: BG BASE EXCESS 6.1 mmol/L (-2.0-2.0); BG DEOXYHEMOGLOBIN 0.8 % (0.0-5.0); BG FRACTION INSPIRED OXYGEN 36; BG HCO3 ACT 30.5 mmol/L (22.0-26.0); BG METHEMOGLOBIN 0.2 % (0.0-1.5); BG OXYGEN SATURATION 99.2 % (92.0-98.5); BG PCO2 43.1 mmHg (35.0-45.0); BG PH 7.467 (7.350-7.450); BG PO2 141.6 mmHg (75.0-100.0); BG SAMPLE SITE RIGHT RADIAL; BG TOTAL HEMOGLOBIN 13.1 g/dL (12.0-18.0); BG VENT MODE NASAL CANNULA
[2022-04-04 12:54] LABS: CLARITY URINE CLOUDY (CLEAR); COLOR URINE DARK YELLOW (YELLOW); KETONES URINE TRACE (NEGATIVE); LEUKOCYTE ESTERASE URINE TRACE (NEGATIVE); NITRITE URINE NEGATIVE (NEGATIVE); OCCULT BLOOD URINE NEGATIVE (NEGATIVE); PROTEIN URINE 1+ (NEGATIVE); SPECIFIC GRAVITY URINE 1.023 (1.005-1.030)
[2022-04-04] MEDS ORDERED: CEFEPIME 2,000 MG in DEXT 5% WATER 100 ML IV STA (13:13)
[2022-04-04] MEDS ORDERED: VANCOMYCIN 1G PREMIX 200 ML IV SCH (13:15)
[2022-04-04] MEDS ORDERED: CEFEPIME 2,000 MG in DEXT 5% WATER 100 ML IV SCH (15:00)
[2022-04-04 15:38] LABS: INR 1.1
[2022-04-04 15:39] LABS: CHLORIDE 126 mEq/L (98-107)
[2022-04-04] MEDS ORDERED: ACETAMINOPHEN 325MG TABLET PO PRN ×2 (15:45)
[2022-04-04] MEDS ORDERED: DOCUSATE SODIUM 100MG CAPSULE PO PRN (15:45)
[2022-04-04] MEDS ORDERED: ONDANSETRON HCL 4MG/2ML INJ IV PRN (15:45)
[2022-04-04] MEDS ORDERED: IPRATROPIUM/ALBUTEROL 0.5-3(2.5)MG/3ML NEB HHN PRN (15:45)
[2022-04-04 15:51] LABS: BASOPHILS % 0.2 % (0.0-2.0); EOSINOPHILS % 0.2 % (0.0-5.0); HEMATOCRIT. 44.1 % (36.0-48.0); HEMOGLOBIN. 13.9 g/dL (12.0-16.0); LYMPHOCYTES % 12.8 % (20.0-50.0); MEAN CORPUSCULAR HEMOGLOBIN 31.7 pg (28.0-32.0); MEAN CORPUSCULAR VOLUME 100.3 fL (81.0-99.0); MEAN PLATELET VOLUME 10.4 fl (7.4-10.4); MONOCYTES % 6.6 % (2.0-8.0); NEUTROPHILS % 80.2 % (40.0-76.0); PLATELET 218 x1000/uL (130-400); RED BLOOD CELL COUNT 4.39 mill/uL (4.2-5.4)
[2022-04-04] MEDS ORDERED: NALOXONE HCL 0.4MG/ML VIAL IV PRN (16:00)
[2022-04-04] MEDS ORDERED: VANCOMYCIN 750MG PREMIX 150 ML IV SCH (20:00)
[2022-04-04 22:00] VITALS: BP 143/78
[2022-04-04] MEDS ORDERED: ASCO500C18 PO (23:04)
[2022-04-04] MEDS ORDERED: CLOP-31 PO (23:04)
[2022-04-04] MEDS ORDERED: ZINC220C6 PO (23:04)
[2022-04-04] MEDS ORDERED: MEGE400O5 PO (23:04)
[2022-04-05] VITALS: BP 141/78
[2022-04-05] MEDS: PIPERACILLIN/TAZOBACTAM 3.375 G in DEXTROSE 5% WATER 50 ML IV SCH ×4 (00:41→21:44)
[2022-04-05 04:00] VITALS: BP_SYST 115; BP_SYST 141; BP_DIAS 67; BP_DIAS 78
[2022-04-05 06:35] LABS: BASOPHILS % 0.2 % (0.0-2.0); EOSINOPHILS % 1.9 % (0.0-5.0); HEMATOCRIT. 40.7 % (36.0-48.0); HEMOGLOBIN. 13.2 g/dL (12.0-16.0); LYMPHOCYTES % 7.9 % (20.0-50.0); MEAN CORPUSCULAR HEMOGLOBIN 32.3 pg (28.0-32.0); MEAN CORPUSCULAR VOLUME 99.6 fL (81.0-99.0); MEAN PLATELET VOLUME 10.5 fl (7.4-10.4); MONOCYTES % 4.5 % (2.0-8.0); NEUTROPHILS % 85.5 % (40.0-76.0); PLATELET 184 x1000/uL (130-400); RED BLOOD CELL COUNT 4.09 mill/uL (4.2-5.4); RED CELL DISTRIBUTION WIDTH 16.5 % (11.6-14.6)
[2022-04-05 08:00] VITALS: BP 141/83
[2022-04-05] MEDS: VANCOMYCIN 750MG PREMIX 150 ML IV SCH (09:43)
[2022-04-05 12:00] VITALS: BP 167/104
[2022-04-05 16:00] VITALS: BP 116/86
[2022-04-05] MEDS: CLOPIDOGREL 75MG TABLET PO SCH (17:00)
[2022-04-05] MEDS: CARVEDILOL 6.25 MG TABLET PO SCH (17:06)
[2022-04-05] MEDS: DEXTROSE 5% WATER 1,000 ML IV SCH (17:07)
[2022-04-05 20:00] VITALS: BP 139/76
[2022-04-05] MEDS ORDERED: IPRATROPIUM BROMIDE (0.02%) 0.5MG/2.5ML NEB HHN PRN (21:00)
[2022-04-05] MEDS ORDERED: ALBUTEROL (0.083%) 2.5MG/3ML NEB HHN PRN (21:00)
[2022-04-05] MEDS: ATORVASTATIN CALCIUM 10MG TABLET PO SCH (21:44)
[2022-04-06] VITALS: BP 128/78
[2022-04-06] MEDS: CARVEDILOL 6.25 MG TABLET PO SCH ×3 (00:02→21:00)
[2022-04-06] MEDS: DEXTROSE 5% WATER 1,000 ML IV SCH ×2 (02:44→16:55)
[2022-04-06 04:00] VITALS: BP 146/89
[2022-04-06] MEDS: PIPERACILLIN/TAZOBACTAM 3.375 G in DEXTROSE 5% WATER 50 ML IV SCH ×3 (05:04→21:07)
[2022-04-06 07:05] LABS: HEMATOCRIT. 39.4 % (36.0-48.0); HEMOGLOBIN. 12.4 g/dL (12.0-16.0); MEAN CORPUSCULAR HEMOGLOBIN 32.4 pg (28.0-32.0); MEAN CORPUSCULAR VOLUME 102.9 fL (81.0-99.0); MEAN PLATELET VOLUME 10.6 fl (7.4-10.4); PLATELET 144 x1000/uL (130-400); RED BLOOD CELL COUNT 3.83 mill/uL (4.2-5.4); RED CELL DISTRIBUTION WIDTH 16.8 % (11.6-14.6)
[2022-04-06 07:56] LABS: CHLORIDE 122 mEq/L (98-107)
[2022-04-06 08:00] VITALS: BP 159/86
[2022-04-06] MEDS: ASPIRIN 81MG TABLET PO SCH (08:54)
[2022-04-06] MEDS: CYANOCOBALAMIN 1000MCG TABLET PO SCH (08:54)
[2022-04-06] MEDS: VANCOMYCIN 750MG PREMIX 150 ML IV SCH (08:54)
[2022-04-06] MEDS: CLOPIDOGREL 75MG TABLET PO SCH (08:54)
[2022-04-06] MEDS: LORAZEPAM 0.5MG TABLET PO PRN ×2 (10:58→21:07)
[2022-04-06 12:00] VITALS: BP 143/79
[2022-04-06] MEDS: RISPERIDONE 0.5MG TABLET PO SCH (14:18)
[2022-04-06 16:00] VITALS: BP 170/111
[2022-04-06 17:36] LABS: PLATELET ESTIMATE NORMAL
[2022-04-06] MEDS: HYDROCODONE/ACETAMINOPHEN 5/325MG TABLET PO PRN (18:53)
[2022-04-06] MEDS: CLONIDINE 0.1MG TABLET PO PRN (18:53)
[2022-04-06 20:00] VITALS: BP 111/70
[2022-04-06] MEDS: ATORVASTATIN CALCIUM 10MG TABLET PO SCH (21:08)
[2022-04-07] VITALS: BP 108/69
[2022-04-07 04:00] VITALS: BP 130/72
[2022-04-07] MEDS: PIPERACILLIN/TAZOBACTAM 3.375 G in DEXTROSE 5% WATER 50 ML IV SCH ×3 (06:12→21:16)
[2022-04-07] MEDS: DEXTROSE 5% WATER 1,000 ML IV SCH ×2 (06:17→20:11)
[2022-04-07 06:55] LABS: CHLORIDE 115 mEq/L (98-107)
[2022-04-07 07:04] LABS: BASOPHILS % 0.1 % (0.0-2.0); EOSINOPHILS % 9.6 % (0.0-5.0); HEMATOCRIT. 36.3 % (36.0-48.0); HEMOGLOBIN. 11.8 g/dL (12.0-16.0); LYMPHOCYTES % 8.6 % (20.0-50.0); MEAN CORPUSCULAR HEMOGLOBIN 31.9 pg (28.0-32.0); MEAN CORPUSCULAR VOLUME 98.3 fL (81.0-99.0); MEAN PLATELET VOLUME 10.7 fl (7.4-10.4); MONOCYTES % 6.3 % (2.0-8.0); NEUTROPHILS % 75.4 % (40.0-76.0); PLATELET 155 x1000/uL (130-400); RED CELL DISTRIBUTION WIDTH 16.1 % (11.6-14.6)
[2022-04-07] MEDS ORDERED: POTASSIUM CHLORIDE 20MEQ TABLET SR PO NR (07:15)
[2022-04-07 08:00] VITALS: BP 160/92
[2022-04-07] MEDS: CARVEDILOL 6.25 MG TABLET PO SCH ×2 (09:50→21:17)
[2022-04-07] MEDS: CLONIDINE 0.1MG TABLET PO PRN (09:51)
[2022-04-07] MEDS: ASPIRIN 81MG TABLET PO SCH (09:51)
[2022-04-07] MEDS: RISPERIDONE 0.5MG TABLET PO SCH (09:51)
[2022-04-07] MEDS: CLOPIDOGREL 75MG TABLET PO SCH (09:51)
[2022-04-07 12:00] VITALS: BP 112/72
[2022-04-07 16:00] VITALS: BP 146/74
[2022-04-07 20:00] VITALS: BP 129/69
[2022-04-07] MEDS ORDERED: VANCOMYCIN 750MG PREMIX 150 ML IV SCH (21:00)
[2022-04-07] MEDS: ATORVASTATIN CALCIUM 10MG TABLET PO SCH (21:16)
[2022-04-07] MEDS: LORAZEPAM 0.5MG TABLET PO PRN (23:13)
[2022-04-08] VITALS: BP 131/87
[2022-04-08 04:00] VITALS: BP 115/60
[2022-04-08] MEDS: PIPERACILLIN/TAZOBACTAM 3.375 G in DEXTROSE 5% WATER 50 ML IV SCH ×3 (05:47→21:06)
[2022-04-08 07:03] LABS: CHLORIDE 112 mEq/L (98-107)
[2022-04-08 07:09] LABS: BASOPHILS % 0.3 % (0.0-2.0); EOSINOPHILS % 7.5 % (0.0-5.0); HEMATOCRIT. 34.1 % (36.0-48.0); HEMOGLOBIN. 11.2 g/dL (12.0-16.0); LYMPHOCYTES % 9.8 % (20.0-50.0); MEAN CORPUSCULAR VOLUME 97.1 fL (81.0-99.0); MEAN PLATELET VOLUME 10.4 fl (7.4-10.4); MONOCYTES % 6.1 % (2.0-8.0); NEUTROPHILS % 76.3 % (40.0-76.0); PLATELET 140 x1000/uL (130-400); RED BLOOD CELL COUNT 3.52 mill/uL (4.2-5.4); RED CELL DISTRIBUTION WIDTH 15.8 % (11.6-14.6)
[2022-04-08 07:10] LABS: PHOSPHORUS 1.9 mg/dL (2.5-4.9)
[2022-04-08 08:00] VITALS: BP 122/78
[2022-04-08] MEDS: DEXTROSE 5% WATER 1,000 ML IV SCH ×2 (10:17→21:07)
[2022-04-08] MEDS: ASPIRIN 81MG TABLET PO SCH (10:17)
[2022-04-08] MEDS: RISPERIDONE 0.5MG TABLET PO SCH (10:18)
[2022-04-08] MEDS: CARVEDILOL 6.25 MG TABLET PO SCH ×2 (10:18→21:06)
[2022-04-08] MEDS: CYANOCOBALAMIN 1000MCG TABLET PO SCH (10:18)
[2022-04-08] MEDS: CLOPIDOGREL 75MG TABLET PO SCH (10:21)
[2022-04-08] MEDS: HYDROCODONE/ACETAMINOPHEN 5/325MG TABLET PO PRN ×2 (10:49→15:36)
[2022-04-08] MEDS ORDERED: POTASSIUM PHOS,M-BASIC-D-BASIC 20 MMOL in DEXT 5% WATER 243.3333 ML IV NR (11:00)
[2022-04-08 12:00] VITALS: BP 118/86
[2022-04-08 16:00] VITALS: BP 138/89
[2022-04-08 20:00] VITALS: BP 117/65
[2022-04-08] MEDS: ATORVASTATIN CALCIUM 10MG TABLET PO SCH (21:06)
[2022-04-09] MEDS: LORAZEPAM 0.5MG TABLET PO PRN ×3 (00:03→20:54)
[2022-04-09 00:04] VITALS: BP 133/77
[2022-04-09 04:00] VITALS: BP 145/81
[2022-04-09] MEDS: PIPERACILLIN/TAZOBACTAM 3.375 G in DEXTROSE 5% WATER 50 ML IV SCH ×2 (05:30→14:00)
[2022-04-09 08:00] VITALS: BP 140/76
[2022-04-09] MEDS: CLOPIDOGREL 75MG TABLET PO SCH (08:54)
[2022-04-09] MEDS: CARVEDILOL 6.25 MG TABLET PO SCH ×2 (08:55→20:55)
[2022-04-09] MEDS: RISPERIDONE 0.5MG TABLET PO SCH (08:55)
[2022-04-09] MEDS: ASPIRIN 81MG TABLET PO SCH (08:55)
[2022-04-09 12:00] VITALS: BP 143/71
[2022-04-09 16:00] VITALS: BP 139/76
[2022-04-09] MEDS: HYDROCODONE/ACETAMINOPHEN 5/325MG TABLET PO PRN (19:33)
[2022-04-09 20:00] VITALS: BP 135/79
[2022-04-09] MEDS: ATORVASTATIN CALCIUM 10MG TABLET PO SCH (20:54)
[2022-04-09 21:42] LABS: BASOPHILS % 0.2 % (0.0-2.0); HEMATOCRIT. 39.8 % (36.0-48.0); HEMOGLOBIN. 12.6 g/dL (12.0-16.0); LYMPHOCYTES % 8.2 % (20.0-50.0); MEAN CORPUSCULAR HEMOGLOBIN 31.4 pg (28.0-32.0); MEAN CORPUSCULAR VOLUME 99.6 fL (81.0-99.0); MEAN PLATELET VOLUME 10.8 fl (7.4-10.4); MONOCYTES % 6.4 % (2.0-8.0); NEUTROPHILS % 81.2 % (40.0-76.0); PLATELET 147 x1000/uL (130-400); RED CELL DISTRIBUTION WIDTH 16.3 % (11.6-14.6)
[2022-04-09 21:56] LABS: CHLORIDE 109 mEq/L (98-107)
[2022-04-09 22:01] LABS: PHOSPHORUS 2.4 mg/dL (2.5-4.9)
[2022-04-10] VITALS: BP 116/64
[2022-04-10] MEDS: DEXTROSE 5% WATER 1,000 ML IV SCH (01:04)
[2022-04-10 04:30] VITALS: BP 156/73
[2022-04-10 08:00] VITALS: BP 195/109
[2022-04-10 09:00] LABS: BASOPHILS % 0.3 % (0.0-2.0); EOSINOPHILS % 3.4 % (0.0-5.0); HEMATOCRIT. 37.6 % (36.0-48.0); HEMOGLOBIN. 12.4 g/dL (12.0-16.0); LYMPHOCYTES % 10.2 % (20.0-50.0); MEAN CORPUSCULAR HEMOGLOBIN 32.3 pg (28.0-32.0); MEAN PLATELET VOLUME 10.5 fl (7.4-10.4); MONOCYTES % 6.2 % (2.0-8.0); NEUTROPHILS % 79.9 % (40.0-76.0); RED BLOOD CELL COUNT 3.84 mill/uL (4.2-5.4); RED CELL DISTRIBUTION WIDTH 16.6 % (11.6-14.6)
[2022-04-10 09:10] LABS: PLATELET 181 x1000/uL (130-400)
[2022-04-10 09:14] LABS: CHLORIDE 105 mEq/L (98-107)
[2022-04-10] MEDS: ASPIRIN 81MG TABLET PO SCH (09:40)
[2022-04-10] MEDS: CARVEDILOL 6.25 MG TABLET PO SCH ×2 (09:42→21:00)
[2022-04-10] MEDS: CLONIDINE 0.1MG TABLET PO PRN (09:42)
[2022-04-10] MEDS: RISPERIDONE 0.5MG TABLET PO SCH (09:42)
[2022-04-10] MEDS: CLOPIDOGREL 75MG TABLET PO SCH (09:44)
[2022-04-10 12:00] VITALS: BP 107/68
[2022-04-10 16:00] VITALS: BP 110/64
[2022-04-10] MEDS ORDERED: NALOXONE HCL 0.4MG/ML VIAL IV PRN (17:30)
[2022-04-10 20:00] VITALS: BP 110/65
[2022-04-10] MEDS: LORAZEPAM 0.5MG TABLET PO PRN (21:12)
[2022-04-10] MEDS: ATORVASTATIN CALCIUM 10MG TABLET PO SCH (21:12)
[2022-04-11] VITALS: BP 115/68
[2022-04-11] MEDS: LORAZEPAM 0.5MG TABLET PO PRN (03:13)
[2022-04-11 04:00] VITALS: BP 156/86
[2022-04-11 07:26] LABS: BASOPHILS % 0.4 % (0.0-2.0); EOSINOPHILS % 3.4 % (0.0-5.0); HEMATOCRIT. 35.9 % (36.0-48.0); HEMOGLOBIN. 11.8 g/dL (12.0-16.0); LYMPHOCYTES % 7.9 % (20.0-50.0); MEAN CORPUSCULAR HEMOGLOBIN 31.9 pg (28.0-32.0); MEAN PLATELET VOLUME 10.4 fl (7.4-10.4); MONOCYTES % 7.4 % (2.0-8.0); NEUTROPHILS % 80.9 % (40.0-76.0); PLATELET 146 x1000/uL (130-400); RED CELL DISTRIBUTION WIDTH 16.7 % (11.6-14.6)
[2022-04-11 07:40] LABS: CHLORIDE 107 mEq/L (98-107)
[2022-04-11 08:00] VITALS: BP 147/87
[2022-04-11] MEDS: CLOPIDOGREL 75MG TABLET PO SCH (08:55)
[2022-04-11] MEDS: ASPIRIN 81MG TABLET PO SCH (08:55)
[2022-04-11] MEDS: RISPERIDONE 0.5MG TABLET PO SCH (08:55)
[2022-04-11] MEDS: CYANOCOBALAMIN 1000MCG TABLET PO SCH (08:55)
[2022-04-11] MEDS: CARVEDILOL 6.25 MG TABLET PO SCH ×2 (08:55→21:04)
[2022-04-11 12:00] VITALS: BP 137/66
[2022-04-11 16:00] VITALS: BP 112/54
[2022-04-11 20:00] VITALS: BP 141/69
[2022-04-11] MEDS: ATORVASTATIN CALCIUM 10MG TABLET PO SCH (21:05)
[2022-04-12 00:14] VITALS: BP 137/72
[2022-04-12] MEDS: LORAZEPAM 0.5MG TABLET PO PRN ×3 (00:38→22:28)
[2022-04-12 04:00] VITALS: BP 153/79
[2022-04-12 08:00] VITALS: BP 165/68
[2022-04-12] MEDS: CARVEDILOL 6.25 MG TABLET PO SCH ×2 (09:04→22:27)
[2022-04-12] MEDS: RISPERIDONE 0.5MG TABLET PO SCH (09:04)
[2022-04-12] MEDS: CLOPIDOGREL 75MG TABLET PO SCH (09:04)
[2022-04-12] MEDS: ASPIRIN 81MG TABLET PO SCH (09:05)
[2022-04-12] MEDS: HYDROCODONE/ACETAMINOPHEN 5/325MG TABLET PO PRN ×2 (09:05→22:28)
[2022-04-12 12:10] VITALS: BP 135/63
[2022-04-12 16:02] VITALS: BP 132/77
[2022-04-12 20:00] VITALS: BP 124/63
[2022-04-12] MEDS: ATORVASTATIN CALCIUM 10MG TABLET PO SCH (22:27)
[2022-04-13] VITALS: BP_SYST 101; BP_SYST 159; BP_DIAS 50; BP_DIAS 63
[2022-04-13 04:00] VITALS: BP 138/70
[2022-04-13 08:00] VITALS: BP 160/81
[2022-04-13] MEDS: CARVEDILOL 6.25 MG TABLET PO SCH (08:36)
[2022-04-13] MEDS: CYANOCOBALAMIN 1000MCG TABLET PO SCH (08:37)
[2022-04-13] MEDS: CLOPIDOGREL 75MG TABLET PO SCH (08:37)
[2022-04-13] MEDS: RISPERIDONE 0.5MG TABLET PO SCH (08:37)
[2022-04-13] MEDS: ASPIRIN 81MG TABLET PO SCH (08:37)
[2022-04-13] MEDS ORDERED: CARV12.545 MT (10:33)
[2022-04-13 10:44] LABS: BASOPHILS % 0.4 % (0.0-2.0); EOSINOPHILS % 1.9 % (0.0-5.0); HEMATOCRIT. 34.5 % (36.0-48.0); HEMOGLOBIN. 11.3 g/dL (12.0-16.0); LYMPHOCYTES % 8.8 % (20.0-50.0); MEAN CORPUSCULAR HEMOGLOBIN 31.8 pg (28.0-32.0); MEAN CORPUSCULAR VOLUME 97.4 fL (81.0-99.0); MEAN PLATELET VOLUME 10.7 fl (7.4-10.4); MONOCYTES % 8.4 % (2.0-8.0); NEUTROPHILS % 80.5 % (40.0-76.0); PLATELET 161 x1000/uL (130-400); RED BLOOD CELL COUNT 3.55 mill/uL (4.2-5.4); RED CELL DISTRIBUTION WIDTH 16.7 % (11.6-14.6)
[2022-04-13 10:49] LABS: CHLORIDE 108 mEq/L (98-107)
[2022-04-13 11:14] VITALS: BP 138/75
[2022-04-13 12:00] VITALS: BP 154/79
[2022-04-13 16:00] VITALS: BP 130/86
[2022-04-13] MEDS ORDERED: CARVEDILOL 12.5MG TABLET PO SCH (21:00)
== END 2022-04-13 17:20 | DRG 853 ==
LOC: ER 11:46 → MICUSO 13:13 → EDBEDREQ 13:19 → EDBEDREQTM 13:19 → ENRESERV 19:49 → 7WST 21:21
PROVIDERS: ADMIT Family Medicine Adult Medicine; ATTEND Family Medicine Adult Medicine
PROC: 0KBP0ZZ Excision of Left Hip Muscle, Open Approach (ICD-10-PCS; principal; 2022-04-13)
PROC: 0KBN0ZZ Excision of Right Hip Muscle, Open Approach (ICD-10-PCS; 2022-04-13)
DX: A41.9 Sepsis, unspecified organism (principal); E43 Unspecified severe protein-calorie malnutrition; L89.154 Pressure ulcer of sacral region, stage 4; G93.41 Metabolic encephalopathy; I21.A1 Myocardial infarction type 2; N17.9 Acute kidney failure, unspecified; N39.0 Urinary tract infection, site not specified; I42.0 Dilated cardiomyopathy; I50.20 Unspecified systolic (congestive) heart failure; E87.20 Acidosis, unspecified; E87.0 Hyperosmolality and hypernatremia; I47.1 Supraventricular tachycardia; J44.9 Chronic obstructive pulmonary disease, unspecified; I27.29 Other secondary pulmonary hypertension; Z20.822 Contact with and (suspected) exposure to COVID-19; I27.81 Cor pulmonale (chronic); I11.0 Hypertensive heart disease with heart failure; E78.00 Pure hypercholesterolemia, unspecified; E11.9 Type 2 diabetes mellitus without complications; F03.90 Unspecified dementia, unspecified severity, without behavioral disturbance, psychotic disturbance, mood disturbance, and anxiety; R09.02 Hypoxemia; R62.7 Adult failure to thrive; E86.0 Dehydration; E83.39 Other disorders of phosphorus metabolism; E87.6 Hypokalemia; E86.9 Volume depletion, unspecified; I25.10 Atherosclerotic heart disease of native coronary artery without angina pectoris; E78.5 Hyperlipidemia, unspecified; Z88.2 Allergy status to sulfonamides; Z88.8 Allergy status to other drugs, medicaments and biological substances; Z79.899 Other long term (current) drug therapy; Z68.37 Body mass index [BMI] 37.0-37.9, adult; Z79.84 Long term (current) use of oral hypoglycemic drugs; Z86.73 Personal history of transient ischemic attack (TIA), and cerebral infarction without residual deficits
CPT/HCPCS: 36415; 36600; 71045; 80048; 80053; 80202; 81003; 82375; 82805; 83605; 83735; 83880; 84100; 84134; 84145; 84295; 84484; 85025; 87426; 87804; 92610; 93005; 93306; 99291; A6261; C1893; C9803; J0692; J2543; J3370; J3490; J7060; J7070; A4315